=== PATIENT | male | born 1965 | race Caucasian/White ===

== ENCOUNTER 2018-03-25 10:28 | Emergency (ER) | payer BC, SELFPAY ==
[2018-03-25 10:38] VITALS: BP 155/101; PULSE 72; RESP 16; TEMP 36.6; O2SAT 98; BMI 25.0
--- NOTE | 2018-03-25 10:39 | HMH.EDGENADL ---
ED Disposition Clinical Impression: Tibial plateau fracture Qualifiers: Encounter type: initial encounter Fracture type: closed Laterality: right Qualified Code(s): S82.141A - Displaced bicondylar fracture of right tibia, initial encounter for closed fracture Disposition: Home, Self-Care Condition on Discharge: Good Instructions: How to Use Crutches, How To Perform RICE (Rest, Ice, Compress, Elevate), How to Use a Knee Immobilizer, DI for Tibial Plateau Fracture Additional Instructions: Tylenol for pain. Ice and elevation. Ranjan wrap, knee immobilizer, and crutches. No weightbearing right leg. See Dr. Painting in his office tomorrow afternoon, call tomorrow morning to schedule a time. Referrals: Alexys Painting MD [Staff Physician] - Forms: Work/School Release - Critical Care Critical Care Time: No Attestation: On 03/25/18, the high probability of a clinically significant, sudden or life threatening deterioration of the following system(s) required my full and direct attention, intervention and personal management. The time I documented below is in addition to time spent performing reported procedures but includes the following listed in this critical care notation. Medical Decision Making - Peter Inquiry Pt receiving controlled substance: No Peter was queried for this patient: Yes Reference #:: [id number] Comment: 1 rx for 20 norco 06/06/17 Vital Signs: 03/25/18 10:38 03/25/18 11:45 03/25/18 11:59 Temperature 97.9 F Temperature Source Oral Pulse Rate [Left Radial] 72 75 72 Respiratory Rate 16 Blood Pressure [Right Arm] 155/101 H 126/75 125/76 Blood Pressure Mean [Right Arm] 119 92 92 Blood Pressure Source [Right Arm] Automatic Cuff Automatic Cuff Automatic Cuff Blood Pressure Position [Right Arm] Sitting Supine Sitting 02 Sat by Pulse Oximetry 98 96 Oxygen Delivery Method Room Air Room Air Orders (Tests/Meds): ED MEDICATIONS Discontinued Medications Generic Name Dose Route Start Last Admin Trade Name Freq PRN Reason Stop Dose Admin Acetaminophen 1,000 mg 03/25/18 12:54 03/25/18 12:58 Tylenol 500mg Tablet PO 03/25/18 12:55 1,000 mg ONCE ONE Administration ORDERS Category Date Time Status Knee XR right 3 views [XR knee RT 3V] Stat Exams 03/25/18 10:50 Taken - CT Data Time Received: 12:45 Findings Narrative: IMPRESSION...... 1.. Lateral tibial plateau fracture.. Impacted minimally comminuted fracture. Depression of the fracture fragment most pronounced towards the lateral aspect the lateral tibial plateau. 2. Medial compartment with degenerative arthritic changes. Chondrocalcinosis most evident new compartment but also seen along posterior aspect of the lateral compartment 3. Notable Osteochondral defect at the lateral facet of patella. Appears old. 4. Large joint effusion Dictated By: Sina Brown Signed By: <Electronically signed by Sina Brown in [place]> 03/25/18 1233 - Physician Consults Physician Consulted: Painting Time: 12:48 Reason -: Orthopedic Eval/Care Comment/Response: He will review x-rays and call back Additional Consult: Painting Time: 13:00 Reason -: Orthopedic Eval/Care Comment/Response: Surgical and nonsurgical options are possible. He will see the patient in his office tomorrow to discuss options. Knee immobilizer, crutches, nonweightbearing, ice and elevation. Patient declines pain medication except for Tylenol. General Adult HPI - General Stated complaint: AO 03/24/18 11pm Right knee pain Time Seen by Provider: 03/25/18 10:39 - History of Present Illness HPI narrative: Twisted his right knee yesterday while skiing. [place] and heard a pop. He now has pain primarily on the medial aspect of the knee, swelling of the knee, and a feeling of instability. He took 3 Tylenol this morning and pain is controlled at this time. He has a previous left knee reconstruction done in [place]
--- NOTE | 2018-03-25 10:50 | XR_ITS ---
XR knee RT 3V Ordering Physician: [place] Sawant MD Patient Age: 53 years: Male HISTORY: ITS.REASON: injury TECHNIQUE: 3 view right knee COMPARISON :No prior FINDINGS Fracture of the lateral tibial plateau . Suggestion subtle depression at most evident towards lateral aspect of the lateral tibial plateau due to this this mildly impacted fracture.. Minor cortical step-off at lateral tibial plateau. Joint effusion suprapatella bursa. . Faint Chondrocalcinosis is seen at the medial compartment involving region medial meniscus may be some minimal chondrocalcinosis at the lateral compartment as well, although less evident. Chondrocalcinosis is likely related to degenerative changes in right knee, but can be seen other conditions such as CPPD/pseudogout Proximal fibula are intact. Bones well mineralized IMPRESSION: ...... Fracture lateral tibial plateau. . Joint effusion Incidental note the Chondrocalcinosis most evident at medial compartment..
--- NOTE | 2018-03-25 10:59 | PC.NURSE ---
Pt to rad
--- NOTE | 2018-03-25 11:16 | CT_ITS ---
CT knee RT wo con Ordering Physician: [place] Sawant MD Patient Age: 53 years: Male HISTORY: ITS.REASON: injury - lat tib plateau fx on xray . Injury. Skiing injury. TECHNIQUE: Helical CT scanning performed knee.. Axial sagittal and coronal reconstructions performed on CT workstation. All CT scans at this facility used one or more dose reduction techniques , viz: automatic exposure control, ma/Kv adjustment per patient's size, (including targeted exam where dose matched to the indication; i.e. head); or iterative reconstruction technique COMPARISON :Plain films right knee 03/25/2018 FINDINGS Fracture of the lateral tibial plateau 2 or 3 small fracture lines are seen passing through the cortical articular surface on the coronal image. There is a. There is 2.3 cm round of impaction here at the lateral aspect lateral tibial plateau weightbearing surface that is nicely seen on axial images. The sagittal images reflect the depression affecting the impacted fracture segment. This impaction/depression becomes pronounced as we follow the lateral tibial plateau coordinates lateral aspect.. ( this is nicely seen on the sagittal image 31.].- With this there also a tiny area of osseous flaring versus chondrocalcinosis along the lateral margin of the tibia & along the lateral margin of this fracture seen on coronal images. The medial compartment with mild narrowing. Mild degenerative arthritic changes medial compartment with with mild chondrocalcinosis. . Large joint effusion. . Patellofemoral relationships appear satisfactory but there is a broad old appearing osteochondral defect seen at the posterior aspect lateral facet superior patella sagittal image 32,. This defect of the lateral facet appears old on corresponding axial images.. The femoral trochanter groove appears intact. No displacement of patella. There may be some mild chondrocalcinosis is seen at the posterior aspect of the lateral compartment along the inferior margin of the posterior meniscus Mild soft tissue swelling overlying patella and patellar tendon. IMPRESSION...... 1.. Lateral tibial plateau fracture.. Impacted minimally comminuted fracture. Depression of the fracture fragment most pronounced towards the lateral aspect the lateral tibial plateau. 2. Medial compartment with degenerative arthritic changes. Chondrocalcinosis most evident new compartment but also seen along posterior aspect of the lateral compartment 3. Notable Osteochondral defect at the lateral facet of patella. Appears old. 4. Large joint effusion
--- NOTE | 2018-03-25 11:30 | PC.NURSE ---
Pt returned to rad for CT scan of extremity
--- NOTE | 2018-03-25 11:44 | PC.NURSE ---
pt returned from rad.
[2018-03-25 11:45] VITALS: BP 126/75; PULSE 75; O2SAT 96
[2018-03-25 11:59] VITALS: BP 125/76; PULSE 72
--- NOTE | 2018-03-25 11:59 | PC.NURSE ---
pt resting comfortably offers no c/o, at bedside
--- NOTE | 2018-03-25 12:44 | PC.NURSE ---
dr anthony rodriguez.
--- NOTE | 2018-03-25 12:45 | PC.NURSE ---
Dr Painting returned call
[2018-03-25 13:29] VITALS: BP 122/65; PULSE 65; RESP 16; TEMP 36.6; O2SAT 98
--- NOTE | 2018-03-25 13:31 | PC.NURSE ---
knee immobilizer to lt knee, crutches with instructions demonstrated
== END 2018-03-25 13:33 | disposition home or self-care (01) ==
PROVIDERS: Emergency Provider Emergency Medicine; PCP Family Medicine
DX: S82.141A Displaced bicondylar fracture of right tibia, initial encounter for closed fracture (principal); X50.1XXA Overexertion from prolonged static or awkward postures, initial encounter; Y93.23 Activity, snow (alpine) (downhill) skiing, snowboarding, sledding, tobogganing and snow tubing
CPT/HCPCS: 29505; 73562; 73700; 99284

== ENCOUNTER 2018-03-26 14:34 | Outpatient (RCR) | payer BC, SELFPAY | END 2018-03-26 15:00 | disposition home or self-care (01) | LOC: PT 14:34 | PROVIDERS: Visit Provider Orthopaedic Surgery | DX: S82.121A Displaced fracture of lateral condyle of right tibia, initial encounter for closed fracture (principal); S83.411A Sprain of medial collateral ligament of right knee, initial encounter | CPT/HCPCS: 97760 ==

== ENCOUNTER → 2018-04-03 13:55 | Outpatient (CLI) | payer BC, SELFPAY ==
--- NOTE | 2018-04-03 14:01 | XR_ITS ---
XR knee RT 2V HISTORY: Follow-up tibial plateau fracture ITS.REASON: right lateral tibial plateau fracture ORDERING PHYSICIAN: Alexys Painting MD PATIENT AGE: 53 years COMPARISON: 03/25/2018 FINDINGS: Minimally depressed fracture of the lateral aspect of the tibial plateau is once again noted. This does not appear significantly changed. There is a moderate size knee joint effusion with minimal osteoarthritic change of the patellofemoral joint and mild chondrocalcinosis of lateral meniscus. IMPRESSION: Overall no change of the minimally depressed lateral tibial plateau fracture with moderate size knee joint effusion
== END ==
PROVIDERS: PCP Family Medicine; Visit Provider Orthopaedic Surgery
DX: S82.143A Displaced bicondylar fracture of unspecified tibia, initial encounter for closed fracture (principal)
CPT/HCPCS: 73560

== ENCOUNTER → 2018-04-16 13:55 | Outpatient (CLI) | payer BC, SELFPAY ==
--- NOTE | 2018-04-16 13:59 | XR_ITS ---
XR knee RT 2V HISTORY: Tibial plateau fracture, fall with injury and pain ITS.REASON: ap lateral ORDERING PHYSICIAN: Alexys Painting MD PATIENT AGE: 53 years COMPARISON: 04/03/2018 FINDINGS: No change in the minimally depressed lateral tibial plateau. Previously noted fracture line is still visible. Mild chondrocalcinosis of the lateral compartment. The suprapatellar effusion appears improved IMPRESSION: No change in the minimal depressed lateral tibial plateau fracture Improving suprapatellar effusion
== END ==
PROVIDERS: PCP Family Medicine; Visit Provider Orthopaedic Surgery
DX: S82.143A Displaced bicondylar fracture of unspecified tibia, initial encounter for closed fracture (principal)
CPT/HCPCS: 73560

== ENCOUNTER → 2018-05-16 13:09 | Outpatient (CLI) | payer BC, SELFPAY ==
--- NOTE | 2018-05-16 13:14 | XR_ITS ---
XR knee RT 2V HISTORY: Follow-up tibial plateau fracture ITS.REASON: ap lateral ORDERING PHYSICIAN: Alexys Painting MD PATIENT AGE: 53 years COMPARISON: 04/16/2018 FINDINGS: Overall no significant change in the minimally depressed lateral tibial plateau fracture. Fracture line still visible along the articular surface of the lateral tibial plateau. IMPRESSION: No change minimally depressed lateral tibial plateau fracture
== END ==
PROVIDERS: PCP Family Medicine; Visit Provider Orthopaedic Surgery
DX: S82.121A Displaced fracture of lateral condyle of right tibia, initial encounter for closed fracture (principal)
CPT/HCPCS: 73560

== ENCOUNTER → 2018-06-14 13:48 | Outpatient (CLI) | payer BC, SELFPAY ==
--- NOTE | 2018-06-14 13:52 | XR_ITS ---
XR knee RT 2V HISTORY: Follow-up fracture ITS.REASON: ap lateral ORDERING PHYSICIAN: Alexys Painting MD PATIENT AGE: 53 years COMPARISON: 05/16/2018 FINDINGS: No change in the minimally depressed lateral tibial plateau fracture. A persistent longitudinal fracture line is noted extending to the proximal articular surface. There is mild chondrocalcinosis of the lateral meniscus and minimal spurring versus loose body in the interspinous region. IMPRESSION: No change minimally depressed lateral tibial plateau fracture
== END ==
PROVIDERS: PCP Family Medicine; Visit Provider Orthopaedic Surgery
DX: S82.141A Displaced bicondylar fracture of right tibia, initial encounter for closed fracture (principal); S83.411A Sprain of medial collateral ligament of right knee, initial encounter
CPT/HCPCS: 73560

== ENCOUNTER → 2018-07-05 13:18 | Outpatient (CLI) | payer BC, SELFPAY ==
--- NOTE | 2018-07-05 13:22 | XR_ITS ---
XR knee RT 2V HISTORY: Fracture follow-up, pain ITS.REASON: f/u fx ORDERING PHYSICIAN: Alexys Painting MD PATIENT AGE: 53 years COMPARISON: 06/14/2018 FINDINGS: Nondisplaced right lateral tibial plateau fracture once again noted. Fracture line still visible. There is chondrocalcinosis of the medial compartment. IMPRESSION: Overall no change of the lateral tibial plateau fracture nondisplaced
== END ==
PROVIDERS: PCP Family Medicine; Visit Provider Orthopaedic Surgery
DX: S82.144D Nondisplaced bicondylar fracture of right tibia, subsequent encounter for closed fracture with routine healing (principal)
CPT/HCPCS: 73560

== ENCOUNTER 2020-01-17 03:28 | Emergency (ER) | payer BC, SELFPAY ==
[2020-01-17 03:43] VITALS: BP 178/107; PULSE 105; RESP 18; TEMP 39.4; O2SAT 98; BMI 25.7
--- NOTE | 2020-01-17 03:57 | XR_ITS ---
PROCEDURE: XR CHEST 2V CLINICAL HISTORY: Cough w/ fever COMPARISON: CT CT ANGIO CHEST from 01/17/2020 FINDINGS: The cardiomediastinal silhouette and pulmonary vascularity are within normal limits. There are nodular opacities in the left lower lobe corresponding to the areas of infiltrate noted on the recent chest CT. 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 No acute bony abnormalities. IMPRESSION: Nodular densities in the left lower lobe corresponding to areas of infiltrate noted on the CT scan which may be slightly worse Dictated by: Francisco Singh MD 01/17/2020 17:02 Francisco Singh MD in [place] 01/17/2020 17:02
[2020-01-17 04:21] LABS: Microscopic, Urine URINE MICROSCOPIC (MICROSCOPIC)
[2020-01-17 04:25] LABS: Basophils # 0.2 K/mm3 (0-0.2); Basophils % 3.3 % (0.1-2.0); Eosinophils # 0.1 K/mm3 (0.0-0.4); Hematocrit 51.1 % (42.0-52.0); Hemoglobin 17.3 g/dL (14.1-18.0); Lymphocytes # 0.6 K/mm3 (0.7-4.5); Lymphocytes % 10.9 % (10-50); Mean Corpuscular HGB Conc 33.9 g/dL (31.8-35.4); Mean Corpuscular Hemoglobin 30.6 pg (27.0-31.2); Mean Corpuscular Volume 90.2 fl (80-94); Mean Platelet Volume 9.6 fl (7.4-10.4); Monocytes # 0.5 K/mm3 (0.1-1.0); Monocytes % 9.9 % (1.7-9.3); Neutrophils % 74.9 % (37.0-80.0); Platelet Count 190 K/mm3 (142-424); Red Blood Count 5.66 M/mm3 (4.60-6.20); White Blood Count 5.3 K/mm3 (4.8-10.8)
[2020-01-17 04:30] LABS: Appearance,Urine CLEAR (Clear); Bilirubin,Urine Negative (Negative); Blood, Urine 1+ (Negative); Color,Urine YELLOW (Yellow); Glucose,Urine (UA) Negative (Negative); Ketones,Urine Negative (Negative); Leukocyte Esterase,Urine Negative (Negative); Nitrate,Urine Negative (Negative); PH,Urine 6.5 (5.0-8.5); Protein,Urine Negative (Negative); Urobilinogen,Urine 0.2 EU/dl (0.2)
[2020-01-17 04:35] LABS: Alanine Aminotransferase 12 U/L (12-78); Albumin Level 4.5 g/dl (3.5-5.0); Albumin/Globulin Ratio 1.5 (1.1-1.8); Alkaline Phosphatase 75 U/L (38-126); Aspartate Amino Transferase 29 U/L (17-59); Bilirubin,Total 0.7 mg/dl (0.2-1.3); Blood Urea Nitrogen 13 mg/dl (9-20); Calcium 9.2 mg/dl (8.4-10.2); Carbon Dioxide 31 mmol/L (22.0-30.0); Chloride 98 mmol/L (98-107); Creatinine Clearance Estimated 111 mL/min (50-200); Estimated Glomerular Filt Rate 78 ml/min (>60); GFR (African American) 95 ML/MIN (>60); Globulin 3.1 g/dL (1.3-3.2); Glucose 90 mg/dl (74-100); Lactic Acid 1.2 mmol/L (0.7-2.1); Sodium 137 mmol/L (136-145); Total Protein,Serum 7.6 g/dl (6.3-8.2)
[2020-01-17 04:40] VITALS: BP 136/86; PULSE 97; RESP 18; O2SAT 97
[2020-01-17 04:40] LABS: C-Reactive Protein 21.7 mg/L (0-4)
[2020-01-17 04:45] VITALS: TEMP 38.7
[2020-01-17 04:54] LABS: Procalcitonin 0.063 ng/mL (0.0-2.0)
[2020-01-17 04:58] LABS: Coronavirus 19 IgG Antibody Negative (Negative); Coronavirus 19 IgM Antibody Negative (Negative); Strep Scrn Group A (Rapid) Negative (Negative)
[2020-01-17 05:00] VITALS: BP 132/84; PULSE 99; RESP 18; O2SAT 98
--- NOTE | 2020-01-17 05:13 | HMH.EDURI ---
ED Disposition Clinical Impression: Adenopathy Community acquired pneumonia Qualifiers: Laterality: left Lung location: lower lobe of lung Qualified Code(s): J18.9 - Pneumonia, unspecified organism Disposition: Home, Self-Care Condition on Discharge: Good Instructions: DI for Fever (Symptom) -- Adult Additional Instructions: use meds and call pcp for follow up Prescriptions: levoFLOXacin [Levaquin 500mg tab] 500 mg PO DAILY #7 tab Transmission Status: Pending to [id number] Referrals: Joshua Balbuena MD [Primary Care Provider] - - Critical Care Critical Care Time: No Attestation: On 01/17/20, the high probability of a clinically significant, sudden or life threatening deterioration of the following system(s) required my full and direct attention, intervention and personal management. The time I documented below is in addition to time spent performing reported procedures but includes the following listed in this critical care notation. Medical Decision Making - Medical Records Medical records reviewed: Yes: I reviewed the patient's medical records. - Peter Inquiry Pt receiving controlled substance: No Vital Signs: 01/17/20 03:43 01/17/20 04:40 01/17/20 04:45 Temperature 102.9 F H 101.6 F H Temperature Source Oral Oral Pulse Rate [Right] 105 H 97 H Respiratory Rate 18 18 Blood Pressure [Right Arm] 178/107 H 136/86 Blood Pressure Mean [Right Arm] 130 102 Blood Pressure Source [Right Arm] Automatic Cuff Blood Pressure Position [Right Arm] Sitting 02 Sat by Pulse Oximetry 98 97 Oxygen Delivery Method Room Air Room Air - Lab Data Lab results reviewed: Yes: I reviewed the patient's lab results. Lab Results 01/17/20 04:00: WBC 5.3, RBC 5.66, Hgb 17.3, Hct 51.1, MCV 90.2, MCH 30.6, MCHC 33.9, RDW 13.0, Plt Count 190, MPV 9.6, Neut % (Auto) 74.9, Lymph % (Auto) 10.9, Thayer % (Auto) 9.9 H, Eos % (Auto) 1.0, Baso % (Auto) 3.3 H, Neut # (Auto) 4.0, Lymph # (Auto) 0.6 L, Thayer # (Auto) 0.5, Eos # (Auto) 0.1, Baso # (Auto) 0.2, ESR 2 01/17/20 04:00: Sodium 137, Potassium 4.0, Chloride 98, Carbon Dioxide 31 H, Anion Gap 12.0, BUN 13, Creatinine 1.00, Estimated Creat Clear 111, Estimated GFR 78, Est GFR ( Amer) 95, Glucose 90, Calcium 9.2, Total Bilirubin 0.7, AST 29, ALT 12, Alkaline Phosphatase 75, C-Reactive Protein 21.7 H, Total Protein 7.6, Albumin 4.5, Globulin 3.1, Albumin/Globulin Ratio 1.5, Procalcitonin 0.063 01/17/20 04:00: Lactate 1.2 01/17/20 04:00: Influenza Type A Ag Negative, Influenza Type B Ag Negative, SARS-CoV-2 IgG Ab (Rapid) Negative, SARS-CoV-2 IgM Ab (Rapid) Negative 01/17/20 04:00: Group A Strep Rapid Negative 01/17/20 04:00: Urine Color Yellow, Urine Appearance Clear, Urine pH 6.5, Ur Specific [place] 1.010, Urine Protein Negative, Urine Glucose (UA) Negative, Urine Ketones Negative, Urine Blood 1+, Urine Nitrate Negative, Urine Bilirubin Negative, Urine Urobilinogen 0.2, Ur Leukocyte Esterase Negative, Urine RBC 5-10, Urine WBC 3-5 Result diagrams: 01/17/20 04:00 01/17/20 04:00 Orders (Tests/Meds): ED MEDICATIONS Generic Name Dose Route Start Last Admin Trade Name Freq PRN Reason Stop Dose Admin Sodium Chloride 1,000 mls @ 999 mls/hr 01/17/20 04:00 01/17/20 04:01 Sod Chlor 0.9% 1000ml Bag IV 01/17/20 05:00 999 mls/hr .Q1H1M MYCHAL Administration Sodium Chloride 1,000 mls @ 999 mls/hr 01/17/20 04:45 01/17/20 04:42 Sod Chlor 0.9% 1000ml Bag IV 01/17/20 05:45 999 mls/hr .Q1H1M MYCHAL Administration Discontinued Medications Generic Name Dose Route Start Last Admin Trade Name Freq PRN Reason Stop Dose Admin Acetaminophen 1,000 mg 01/17/20 03:57 01/17/20 04:02 Acetaminophen 500mg Tab PO 01/17/20 03:58 1,000 mg ONCE ONE Administration Dexamethasone Sodium Phosphate 10 mg 01/17/20 03:57 01/17/20 04:01 Dexamethasone 4mg/Ml 5ml Mdv IV 01/17/20 03:58 10 mg ONCE ONE Administration Ibuprofen 800 mg 01/17/20 03
--- NOTE | 2020-01-17 05:18 | CT_ITS ---
PROCEDURE: CT ANGIO CHEST CLINCIAL INDICATION: SOA Fever, chills, cough, loss taste COMPARISON: No exams were available for comparison TECHNIQUE: IV Contrast: 70ML Isovue 370 Axial images obtained with sagittal and coronal reformats. All CT scans at the facility use one or more dose reduction, viz: automated exposure control, ma/kV adjustment per patient size (including targeted exams where dose is matched to indication, i.e. head), or iterative reconstruction technique. FINDINGS: HEART AND MEDIASTINAL STRUCTURES: Thyroid gland is somewhat prominent on both sides right more than left. There is scattered small mediastinal and supraclavicular lymph nodes. The largest cluster of nodes is in the distal left paratracheal region measuring 2.7 by 2.7 cm. LUNGS AND PLEURAL SPACES: There is mild biapical nodularity. There is consolidation within the left lower lobe posteriorly consistent with pneumonia. No effusions. BONY STRUCTURES: No acute bony abnormalities apparent. UPPER ABDOMEN: Unremarkable. ADDITIONAL FINDINGS: No other significant abnormalities. IMPRESSION: Left lower lobe pneumonia with mild mediastinal and supraclavicular and axillary adenopathy. Prominent thyroid gland Dictated by: Francisco Singh MD 01/17/2020 06:00 Francisco Singh MD in [place] 01/17/2020 06:00
[2020-01-17 05:28] LABS: Erythrocyte Sedimentation Rate 2 mm/hr (0-20)
[2020-01-17 06:00] VITALS: BP 135/82; PULSE 95; RESP 18; O2SAT 95
[2020-01-17 07:04] VITALS: BP 140/92; PULSE 88; RESP 18; TEMP 37.4; O2SAT 95
[2020-01-18 14:12] LABS: Covid-19 Nasal PCR Sendout Lex POSITIVE
--- NOTE | 2020-01-18 14:19 | PC.NURSE ---
attempted to call results to pt but the number in the chart is disconnected.
== END 2020-01-17 07:11 | disposition home or self-care (01) ==
PROVIDERS: Emergency Provider Emergency Medicine; PCP Family Medicine
DX: U07.1 COVID-19 (principal); J18.9 Pneumonia, unspecified organism; Z87.442 Personal history of urinary calculi; E03.9 Hypothyroidism, unspecified; Z79.899 Other long term (current) drug therapy
CPT/HCPCS: 71046; 71275; 80053; 81001; 83605; 84145; 85025; 85651; 86140; 86328; 87040; 87275; 87276; 87430; 96366; 96375; 99284; Q9967; U0004

== ENCOUNTER → 2020-11-27 12:36 | Outpatient (CLI) | payer BC, SELFPAY ==
--- NOTE | 2020-11-27 12:56 | ECG_ITS ---
APPROVED REPORT Exam: Resting ECG HR:96 bpm ECG Measurements Heart Rate 96 AXES QRSd 86 QRS 74 QT 330 T -21 QTc 416 Conclusion Atrial fibrillation Minimal voltage criteria for LVH, may be normal variant T wave abnormality, consider inferior ischemia or digitalis effect Abnormal ECG Electronically signed by : Osmel Lara MD 11/28/2020 09:12:53
== END ==
PROVIDERS: PCP Family Medicine; Visit Provider Family Medicine
DX: I49.9 Cardiac arrhythmia, unspecified (principal)
CPT/HCPCS: 93005

== ENCOUNTER → 2020-12-07 10:19 | Outpatient (CLI) | payer BC, SELFPAY | PROVIDERS: PCP Family Medicine; Visit Provider Physician Assistant | DX: R07.9 Chest pain, unspecified (principal); I48.91 Unspecified atrial fibrillation; E07.9 Disorder of thyroid, unspecified; I10 Essential (primary) hypertension; R06.83 Snoring; R40.0 Somnolence | CPT/HCPCS: 93270 ==

== ENCOUNTER → 2020-12-22 06:07 | Outpatient (CLI) | payer BC, SELFPAY ==
--- NOTE | 2020-12-22 06:17 | NM_ITS ---
APPROVED REPORT Exam: Nuclear Stress Test Indication: Palpitations, Afib, HTN, Family history Patient Location: Outpatient Stress Tech: Sandhya Clements [place] Tech:Sofia Avendano, ARRT, RT (R)(N) Ht: 6 ft 2 in Wt: 200 lbs HR: 87 bpm BP: 149/101 mmHg BSA: 2.17 m2 BMI: 25.6 History: Palpitations, Afib, HTN, Family history Procedure: Patient exercised on Primitivo protocol 9:49 minutes and sec, resting heart rate 87 bpm, resting blood pressure 149/101 mmHg, with exercise maximum heart rate achived was 180 bpm which is 108 % of the maximum predicted heart rate and blood pressure was 204/108 mmHg. Test was stopped due to leg fatigue and SOA. Patient denied any complaint of chest pain. Patient has good exercise capacity, achieved 10.1 METs of workload on treadmill, the blood pressure response to exercise was Hypertensive. Electrocardiogram Resting electrocardiogram shows sinus rhythm, with exercise there is additional [address] segment depression noted from the baseline EKG. The EKG portion of the exercise Myoview is nondiagnostic due to baseline abnormal EKG. Cardiac Stress and Resting SPECT Images: Cardiac Stress and Resting SPECT images were obtained using technetium 99m Myoview 29.1 mCi stress and 10.77 mCi at rest. Gated SPECT for analysis of segmental wall motion and calculation of the ejection fraction also done. Cardiac stress and resting SPECT images show uniform myocardial activity without segmental perfusion abnormality, compared right ejection fraction is 36% with no regional wall motion abnormality, right ventricle is normal size and contractility, however during the study patient was in atrial fibrillation with variable response, that may underestimate the ejection fraction by gated SPECT. Conclusion: 1. The EKG portion of the exercise Myoview is nondiagnostic due to baseline abnormal EKG, patient has good exercise capacity achieved 10.1 METs of workload on treadmill, the blood pressure response to exercise was hypertensive, test was stopped due to shortness of breath patient did not complain chest pain. 2. No scintigraphic evidence of reversible ischemia seen, compared right ejection fraction is 36% with no regional wall motion abnormality, however during the study patient was in atrial fibrillation with variable ventricular response that may underestimate the ejection fraction by gated SPECT. An echocardiogram will be better modality to evaluate left ventricular systolic function in this patient. Electronically signed by : Gage Rivera MD 12/22/2020 18:25:58
--- NOTE | 2020-12-22 06:17 | US_ITS ---
PROCEDURE: US THYROID CLINICAL INDICATION: new onset afib/known thyroid disease COMPARISON: CT CT ANGIO CHEST from 01/17/2020 FINDINGS: Right lobe: 5.7 x 2.4 x 2.7 cm. Diffuse heterogeneous echogenicity without discrete nodule. Left lobe: 5.8 x 2 x 2.4 cm. No discrete nodule apparent. Isthmus: Unremarkable Additional findings: IMPRESSION: Enlarged heterogeneous thyroid gland consistent with goiter without discrete nodule. Dictated by: Francisco Singh MD 12/23/2020 08:56 Francisco Singh MD in [place] 12/23/2020 08:56
--- NOTE | 2020-12-22 08:18 | CA_ITS ---
APPROVED REPORT EXAM: Comprehensive 2D, Doppler, and color-flow Echocardiogram Lens Edge Grinder Machine: Ursula Diego CRT Ht: 6 ft 2 in Wt: 199lbs BSA: 2.17 BP: 137/97 mmHg Indications: Chest Pain, Atrial Fibrillation 2D Dimensions LVOT 1.93 cm (M/F) 1.5-2.5 LA Volume 33.00 mL LA Volume Index 15.20 mL/m2 (M/F) 16-34 M-Mode Dimensions RVDd 3.40 cm (0.9-2.6) LA Diam 3.38 cm (1.9-4.0) LVDd 4.29 cm (3.5-5.7) Ao Diam 4.11 cm (2.0-3.7) LVDs 3.33 cm (3.5-5.7) IVSd 1.00 cm (0.6-1.1) PWd 0.75 cm (0.6-1.1) EF (Teich) 45.40% FS 22.40% EDV (Teich) 82.60 mL TAPSE 1.54 (<1.7) ESV (Teich) 45.10 mL LV Diastology E Decel Time 130.00 (160-240 msec) E/A Ratio 1.40 Aortic Valve AO Peak GR. 7.00 mmHg Mitral Valve MV E Max Dawson. 76.00 (40-130 cm/s) MV A Velocity 54.00 (40-130 cm/s) E/A Ratio 1.40 MV Decel. Time 130.00 (160-240 ms) MV PHT 38.00 ms Pulmonary Valve PV Peak Velocity 141.00 (50-150 cm/s) Tricuspid Valve TR P. Velocity 251.00 cm/s RAP Estimate 10.00 mmHg RVSP 35.20 mmHg Left Ventricle Left atrium is mildly enlarged, left ventricle is normal size, mild concentric left ventricular hypertrophy, visually estimated ejection fraction 50% with no regional wall motion abnormality, endocardial cells are poorly visualized, diastolic parameters are inconclusive. Right Ventricle Right atrium and right ventricle are mildly enlarged with normal contractility. Aortic Valve Aortic valve is minimally thickened and fibrosed, there is no aortic stenosis or aortic insufficiency. Mitral Valve Mitral valve grossly normal, there is trace mitral regurgitation. Tricuspid Valve Tricuspid grossly normal, there is trace tricuspid regurgitation, tricuspid regurgitation jet velocity is inadequate for calculation of the right ventricular systolic pressure. Pulmonic Valve Pulmonic valve is poorly visualized. Great Vessels Aortic root is normal size. Inferior vena cava is normal size with normal inspiratory collapse. Pericardium No significant pericardial effusion noted. Conclusion 1. Mild biatrial enlargement, normal left ventricular size, mild concentric left ventricular hypertrophy, visually estimated ejection fraction 50% with no regional wall motion abnormality, diastolic parameters are inconclusive. 2. Mildly enlarged right ventricle with normal contractility. 3. Trace mitral and tricuspid regurgitation. 4. No significant pericardial effusion noted. Electronically signed by : Gage Rivera MD 12/22/2020 19:10:35
--- NOTE | 2020-12-22 08:31 | HMH.ITSHM ---
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 []RIVAROXABAN LEVOTHYROXINE DILTIAZEM
--- NOTE | 2020-12-22 09:42 | CA_ITS ---
APPROVED REPORT Exam: Exercise Treadmill Technologist: Sandhya Clements, Ht: 6 ft 2 in Wt: 199 lbs BSA: 2.17 m2 HR: 87 bpm BP: 149/101 mmHg Indications: Afib Medical History Medications: Levothyroxine,,,,, DilTAiazem,,,,, Stress Test Details Test: Primitivo HR Resting HR: 103 bpm Max Heart Rate (APMHR): 167.604754 bpm Max HR Achieved: 184 bpm Target HR (85% APMHR): 141.520309 bpm % of APMHR: 110.18 Recovery HR: 93 bpm BP Resting BP: 149/110 mmHg Max BP: 204/108 mmHg Recovery BP: 114.0/80.0 mmHg ECG Resting ECG: Afib, controlled rate, Twave abns inferiorly, ST-T abns laterally Clinical Exercise duration: 09:49 min Highest Stage Achieved: Exercise capacity: 10.1 METs Stress ECG Conclusion Exercised 9:49 on Primitivo Protocol. Metoprolol 2.5mg IV given to slow HR. Max HR: 180 %of PM: 108% Max BP: 204/108 METs: 10.1 Test stopped due to: SOA, Leg fatigue Symptoms: No CP. Arrhythmias/Ectopy: Afib with periods of atrial flutter. ST-T Changes: Exaggeration of baseline abns. Conclusion: Non-diagnostic EXT. Myoview images reported separately. Test Summary Stage 3 03:00 14.0 3.4 156 . 204/108 . . REST . . . . . . . Standing REST 04:16 0.0 0.0 103 . 149/110 . . Stage 1 01:00 10.0 1.7 109 . . . . Stage 1 02:00 10.0 1.7 111 . . . . Stage 1 03:00 10.0 1.7 117 . 150/110 . . Stage 2 01:00 12.0 2.5 137 . . . . Stage 2 02:00 12.0 2.5 134 . . . . Stage 2 03:00 12.0 2.5 155 . 180/108 . . Stage 3 01:00 14.0 3.4 155 . . . . Stage 3 02:00 14.0 3.4 157 . . . . Stage 3 03:00 14.0 3.4 156 . 204/108 . . Stage 4 00:49 16.0 4.2 173 . . . Stop exercise at 09:49 RECOVERY 01:00 0.0 0.0 165 . . . . RECOVERY 02:00 0.0 0.0 167 . 182/ 98 . . RECOVERY 03:00 0.0 0.0 168 . 182/ 98 . . RECOVERY 04:00 0.0 0.0 168 . 155/107 . . RECOVERY 05:00 0.0 0.0 164 . 155/107 . . RECOVERY 06:00 0.0 0.0 168 . 154/ 97 . . RECOVERY 07:00 0.0 0.0 164 . 154/ 97 . . RECOVERY 08:00 0.0 0.0 164 . 154/ 97 . . RECOVERY 09:00 0.0 0.0 160 . 154/ 97 . . RECOVERY 10:00 0.0 0.0 93 . 154/ 97 . . RECOVERY 11:00 0.0 0.0 91 . 154/ 97 . . RECOVERY 12:00 0.0 0.0 90 . 113/ 83 . . RECOVERY 13:00 0.0 0.0 79 . 113/ 83 . . RECOVERY 14:00 0.0 0.0 86 . 113/ 83 . . RECOVERY 14:53 0.0 0.0 88 . 114/ 80 . . Electronically signed by : Gage Rivera MD 12/22/2020 18:11:11
== END ==
PROVIDERS: PCP Family Medicine; Visit Provider Physician Assistant
DX: I48.91 Unspecified atrial fibrillation (principal); R07.9 Chest pain, unspecified; E07.9 Disorder of thyroid, unspecified; I10 Essential (primary) hypertension
CPT/HCPCS: 76536; 78452; 93017; 93306; A9502

== ENCOUNTER → 2021-01-14 15:32 | Outpatient (CLI) | payer BC, SELFPAY | PROVIDERS: PCP Family Medicine; Visit Provider Physician Assistant | DX: G47.33 Obstructive sleep apnea (adult) (pediatric) (principal); R07.9 Chest pain, unspecified; R06.83 Snoring; R40.0 Somnolence | CPT/HCPCS: G0399 ==

== ENCOUNTER → 2021-02-01 12:59 | Outpatient (CLI) | payer BC, SELFPAY ==
--- NOTE | 2021-02-01 13:18 | ECG_ITS ---
APPROVED REPORT Exam: Resting ECG HR:99 bpm ECG Measurements Heart Rate 99 AXES QRSd 94 QRS 48 QT 346 T -87 QTc 444 Conclusion Atrial fibrillation Nonspecific ST and T wav changes Abnormal ECG Electronically signed by : Osmel Lara MD 02/03/2021 13:27:04
== END ==
PROVIDERS: PCP Family Medicine; Visit Provider Internal Medicine Cardiovascular Disease
DX: I48.0 Paroxysmal atrial fibrillation (principal)
CPT/HCPCS: 93005

== ENCOUNTER 2021-02-12 22:04 | Emergency (ER) | payer BC, SELFPAY ==
[2021-02-12 22:06] VITALS: BP 143/89; PULSE 78; RESP 18; TEMP 37.8; O2SAT 96; BMI 25.0
--- NOTE | 2021-02-12 22:34 | XR_ITS ---
PROCEDURE INFORMATION: Exam: XR Chest Exam date and time: 02/12/2021 10:34 PM Age: 55 years old Clinical indication: Cough TECHNIQUE: Imaging protocol: XR of the chest. Views: 2 views. COMPARISON: CR XR CHEST 2V 01/17/2020 3:53 AM FINDINGS: Lungs: Mild biapical scarring. Lungs appear mildly hyperinflated with diffuse interstitial coarsening, suggesting COPD. Interval resolution of previously demonstrated airspace disease in the left mid to lower lung since prior study of 01/17/2020. No consolidation currently. No pulmonary edema. Pleural spaces: No pleural effusion. No pneumothorax. Heart/Mediastinum: Normal heart size. Bones/joints: Scattered mild degenerative changes. IMPRESSION: No acute finding.
[2021-02-12 22:38] LABS: Coronavirus 19, PCR Not Detected (NotDetected); Influenza A, PCR Not Detected (NotDetected); Influenza B, PCR Not Detected (NotDetected)
[2021-02-12 22:41] LABS: Basophils # 0.2 K/mm3 (0-0.2); Basophils % 1.4 % (0.1-2.0); Eosinophils # 0.2 K/mm3 (0.0-0.4); Eosinophils % 1.8 % (0.1-12.0); Hematocrit 54.8 % (42.0-52.0); Hemoglobin 17.3 g/dL (14.1-18.0); Lymphocytes # 2.2 K/mm3 (0.7-4.5); Lymphocytes % 18.5 % (10-50); Mean Corpuscular HGB Conc 31.5 g/dL (31.8-35.4); Mean Corpuscular Hemoglobin 29.4 pg (27.0-31.2); Mean Corpuscular Volume 93.3 fl (80-94); Mean Platelet Volume 9.9 fl (7.4-10.4); Monocytes % 8.8 % (1.7-9.3); Neutrophils # 8.2 K/mm3 (1.8-7.8); Neutrophils % 69.5 % (37.0-80.0); Platelet Count 270 K/mm3 (142-424); Red Blood Count 5.87 M/mm3 (4.60-6.20); Red Cell Distribution Width 13.1 % (11.5-17.5); White Blood Count 11.8 K/mm3 (4.8-10.8)
[2021-02-12 22:46] LABS: Alanine Aminotransferase 20 U/L (12-78); Albumin Level 4.5 g/dl (3.5-5.0); Albumin/Globulin Ratio 1.3 (1.1-1.8); Alkaline Phosphatase 78 U/L (38-126); Anion Gap 12.6 mEq/L (5-15); Aspartate Amino Transferase 33 U/L (17-59); Blood Urea Nitrogen 11 mg/dl (9-20); Calcium 9.3 mg/dl (8.4-10.2); Carbon Dioxide 29 mmol/L (22.0-30.0); Chloride 100 mmol/L (98-107); Creatinine Clearance Estimated 107 mL/min (50-200); Estimated Glomerular Filt Rate 78 ml/min (>60); GFR (African American) 95 ML/MIN (>60); Globulin 3.4 g/dL (1.3-3.2); Glucose 105 mg/dl (74-100); Potassium 3.6 mmoL/L (3.5-5.1); Sodium 138 mmol/L (136-145); Total Protein,Serum 7.9 g/dl (6.3-8.2)
[2021-02-12 22:56] LABS: Strep Scrn Group A (Rapid) Negative (Negative)
[2021-02-12 23:05] LABS: T4 (Thyroxine) 9.6 ug/dl (5.53-11.0)
[2021-02-12 23:06] LABS: Procalcitonin 0.081 ng/mL (0.0-2.0)
[2021-02-12 23:07] LABS: Erythrocyte Sedimentation Rate 4 mm/hr (0-20)
[2021-02-12 23:19] LABS: Thyroid Stimulating Hormone 1.13 uIU/mL (0.465-4.68)
--- NOTE | 2021-02-12 23:48 | HMH.EDURI ---
ED Disposition Clinical Impression: Pharyngitis Qualifiers: Pharyngitis/tonsillitis etiology: unspecified etiology Qualified Code(s): J02.9 - Acute pharyngitis, unspecified Disposition: Home, Self-Care Condition on Discharge: Good Instructions: DI for Fever (Symptom) -- Adult Additional Instructions: fluids and use meds as directed Prescriptions: Azithromycin [Zithromax 250mg tab] 250 mg PO DIRECTED #6 tab Transmission Status: Pending to [facility] [address] [place] [address] Rx Referrals: Joshua Balbuena MD [Primary Care Provider] - - Critical Care Critical Care Time: No Attestation: On 02/12/21, the high probability of a clinically significant, sudden or life threatening deterioration of the following system(s) required my full and direct attention, intervention and personal management. The time I documented below is in addition to time spent performing reported procedures but includes the following listed in this critical care notation. Medical Decision Making - Medical Records Medical records reviewed: Yes: I reviewed the patient's medical records. - Peter Inquiry Pt receiving controlled substance: No Vital Signs: 02/12/21 22:06 Temperature 100.1 F H Temperature Source Oral Pulse Rate [Apical] 78 Respiratory Rate 18 Blood Pressure [Right Arm] 143/89 H Blood Pressure Mean [Right Arm] 107 Blood Pressure Source [Right Arm] Automatic Cuff Blood Pressure Position [Right Arm] Sitting 02 Sat by Pulse Oximetry 96 Oxygen Delivery Method Room Air - Lab Data Lab results reviewed: Yes: I reviewed the patient's lab results. Lab Results 02/12/21 22:20: WBC 11.8 H, RBC 5.87, Hgb 17.3, Hct 54.8 H, MCV 93.3, MCH 29.4, MCHC 31.5 L, RDW 13.1, Plt Count 270, MPV 9.9, Neut % (Auto) 69.5, Lymph % (Auto) 18.5, Bladen % (Auto) 8.8, Eos % (Auto) 1.8, Baso % (Auto) 1.4, Neut # (Auto) 8.2 H, Lymph # (Auto) 2.2, Bladen # (Auto) 1.0, Eos # (Auto) 0.2, Baso # (Auto) 0.2 02/12/21 22:20: Sodium 138, Potassium 3.6, Chloride 100, Carbon Dioxide 29, Anion Gap 12.6, BUN 11, Creatinine 1.00, Estimated Creat Clear 107, Estimated GFR 78, Est GFR ( Amer) 95, Glucose 105 H, Calcium 9.3, Total Bilirubin 1.0, AST 33, ALT 20, Alkaline Phosphatase 78, C-Reactive Protein 67.0 H, Total Protein 7.9, Albumin 4.5, Globulin 3.4 H, Albumin/Globulin Ratio 1.3, TSH 1.13, Thyroxine (T4) 9.6 02/12/21 22:20: SARS-CoV-2 (PCR) Not detected, Influenza A Untype (PCR) Not detected, Influenza Type B (PCR) Not detected 02/12/21 22:20: ESR 4 02/12/21 22:20: Procalcitonin 0.081 02/12/21 22:30: Group A Strep Rapid Negative Result diagrams: 02/12/21 22:20 02/12/21 22:20 Orders (Tests/Meds): ED MEDICATIONS Generic Name Dose Route Start Last Admin Trade Name Freq PRN Reason Stop Dose Admin Lactated Ringer's 1,000 mls @ 999 mls/hr 02/12/21 22:30 02/12/21 22:35 Lactated Ringer's 1000 Ml Bag IV 02/12/21 23:30 999 mls/hr .Q1H1M MYCHAL Administration Discontinued Medications Generic Name Dose Route Start Last Admin Trade Name Freq PRN Reason Stop Dose Admin Acetaminophen 1,000 mg 02/12/21 22:29 02/12/21 22:36 Acetaminophen 500mg Tab PO 02/12/21 22:30 1,000 mg ONCE ONE Administration Ibuprofen 600 mg 02/12/21 22:29 02/12/21 22:35 Ibuprofen 600 Mg Tablet PO 02/12/21 22:30 600 mg ONCE ONE Administration ORDERS Category Date Time Status Strep Screen Confirmation Stat Micro 02/12/21 22:30 Received - Radiology Data #1 Image(s): Chest Image Reviewed: Yes I have reviewed radiologist's interpretation Preliminary Findings: Normal/NAD Medical Decision Narrative: pt with uri sx cough and sore throat with no rash with stable exam and labs URI/Sore Throat HPI - General Chief Complaint: Fever Stated Complaint: sore throat,cough,runny nose Time Seen by Provider: 02/12/21 23:00 Mode of Arrival: Ambulatory Source of Information: Patient, Medical Record Limitations: No Limitations Description of
[2021-02-13 00:05] VITALS: BP 119/82; PULSE 73; RESP 20; TEMP 37.1; O2SAT 99
== END 2021-02-13 00:13 | disposition home or self-care (01) ==
PROVIDERS: Emergency Provider Emergency Medicine; PCP Family Medicine
DX: J02.9 Acute pharyngitis, unspecified (principal); Z20.822 Contact with and (suspected) exposure to COVID-19
CPT/HCPCS: 71046; 80053; 84145; 84436; 84443; 85025; 85651; 86140; 87430; 96365; 99283; C9803; U0003; U0005

== ENCOUNTER → 2021-03-03 11:12 | Outpatient (CLI) | payer BC, SELFPAY | PROVIDERS: PCP Family Medicine; Visit Provider Obstetrics & Gynecology Gynecology | DX: Z01.812 Encounter for preprocedural laboratory examination (principal); Z11.52 Encounter for screening for COVID-19 | CPT/HCPCS: C9803; U0003; U0005 ==

== ENCOUNTER → 2021-03-17 12:40 | Outpatient (CLI) | payer BC, SELFPAY | PROVIDERS: PCP Family Medicine; Visit Provider Obstetrics & Gynecology Gynecology | DX: Z01.812 Encounter for preprocedural laboratory examination (principal); Z11.52 Encounter for screening for COVID-19 | CPT/HCPCS: C9803; U0003; U0005 ==

== ENCOUNTER 2022-12-26 10:01 | Emergency (ER) | payer BC, SELFPAY ==
--- NOTE | 2022-12-26 10:06 | XR_ITS ---
FINAL REPORT CLINICAL HISTORY: posterior PAIN no known trauma COMPARISON: None FINDINGS: LEFT WRIST Three views demonstrate no acute fracture or dislocation. The visualized joint spaces are normally aligned. There is a soft tissue calcification noted in the medial wrist, of uncertain etiology. IMPRESSION: Soft tissue calcification in the medial wrist, uncertain etiology. Reviewed, Interpreted and Dictated by Preet Mitchell III, MD Transcribed by Sara Potts Authenticated and [facility]
[2022-12-26 10:25] VITALS: BP 140/90; PULSE 63; RESP 18; TEMP 36.9; O2SAT 98; BMI 25.9
--- NOTE | 2022-12-26 10:56 | EXP.UTC ---
Discharge Plan Disposition Patient Disposition: Home, Self-Care Condition: Good Prescriptions Prescriptions: No Action levothyroxine 125 mcg tablet 150 mcg PO DAILY magnesium oxide 400 mg (241.3 mg magnesium) tablet 400 mg PO DAILY Patient Comments: TAKE 1 TABLET BY MOUTH ONCE DAILY losartan 100 mg tablet 100 mg PO DAILY Patient Comments: TAKE 1 TABLET BY MOUTH ONCE DAILY Referrals Follow up/Referrals: Joshua Balbuena MD [Primary Care Provider] - See instructions Junito Mead DO [Staff Physician] - See instructions (Call office for appointment) Activity Restrictions/Add. Instructions Additional Instructions/Restrictions: *RICE, Rest the extremity, Ice 15-20 minutes 3-4 times daily, Compress- wear the daphne wrap as discussed as much as possible to help reduce swelling and pain, Elevate the extremity when at rest *Velcro Wrist splint is for support and help control swelling, use it except in the shower. Be sure that is not to tight but not to loose either that you have at home *Elevate when resting? *Ibuprofen 600-800mg every 6-8 hours as needed for pain an inflammation. If need something more can take Tylenol in between doses of Ibuprofen to help Immediately follow up with your family doctor for new or worsening of symptoms, or no noticeable improvement over the next 3-5 days Follow up with Orthopedics if pain continues Clinical Impressions Clinical Impression: Pain in wrist Qualifiers: Laterality: left Qualified Code(s): M25.532 - Pain in left wrist Instructions Patient Instructions: How To Perform RICE (Rest, Ice, Compress, Elevate), DI for Wrist Pain Discharge ED Provider: Amaya Cheung [facility] General Stated complaint: fell on L wrist 12/16/22 Mode of Arrival: Ambulatory Source of Information: Patient Limitations: No Limitations Time Seen by Provider: 12/26/22 10:56 Description of Symptoms (Recalled from Triage Doc. by RN): PATIENT C/O PAIN TO LEFT WRIST. HE STATES HE FELL BACKWARD ON 12/16 AND WAS TRYING TO CATCH HIMSELF AND INJURED HIS WRIST. 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 and it keeps aggravating it so he came in to get it xrayed to make sure that nothing is broken Related Data Home Medications Medication Instructions Recorded Confirmed levothyroxine 125 mcg tablet 150 mcg PO DAILY thyroid 12/07/20 12/26/22 losartan 100 mg tablet 100 mg PO DAILY 12/26/22 12/26/22 magnesium oxide 400 mg (241.3 mg 400 mg PO DAILY 12/26/22 12/26/22 magnesium) tablet Allergies Allergy/AdvReac Type Severity Reaction Status Date / Time No Known Allergies Allergy Verified 12/07/20 09:27 Worker's Comp Is this a Worker's Comp case?: No [facility] Disclaimer: The information contained in this section may have been updated after the patient was seen, as this information can be updated by other users. Medical History (Updated 12/26/22 @ 11:29 by Amaya Cheung APRN) Hypertension Hypothyroid Social History Smoking Status: Never smoker alcohol intake: never current occupational status: employed Travel in the last 8 weeks: Inside the [place] household members: spouse housing: house caffeine: No ROS Obtained: Yes All systems reviewed & no additional complaints except as documented and Yes Systems reviewed as appropriate & no additional complaints except as documented Constitutional Constitutional: Reports system reviewed and no additional complaints, except as docume
[2022-12-26 11:23] VITALS: BP 140/90; PULSE 63; RESP 18; TEMP 36.9; O2SAT 98
== END 2022-12-26 11:33 | disposition home or self-care (01) ==
PROVIDERS: Emergency Provider Nurse Practitioner; PCP Family Medicine
DX: M25.532 Pain in left wrist (principal); I10 Essential (primary) hypertension; E03.9 Hypothyroidism, unspecified; W01.10XA Fall on same level from slipping, tripping and stumbling with subsequent striking against unspecified object, initial encounter
CPT/HCPCS: 73110; 99204; 99212; G0463

== ENCOUNTER 2023-08-22 07:27 | Day surgery (SDC) | payer BC, SELFPAY ==
[2023-08-18 13:12] VITALS: BMI 25.0
[2023-08-22] VITALS (7 sets, daily range): BP systolic 99–134; BP diastolic 58–102; PULSE 57–69; RESP 16–18; TEMP 36.3–36.4; O2SAT 94–98
[2023-08-22] MEDS: LACTATED RINGERS 1000ML 1,000 ML 25 ML IV (07:46)
--- NOTE | 2023-08-22 08:03 | P.PNANES_ITS ---
[facility] Disclaimer: The information contained in this section may have been updated after the patient was seen, as this information can be updated by other users. Medical History Hypothyroid Hypertension Surgical History (Updated 08/22/23 @ 07:48 by Antony Stroud RN) History of cardiac radiofrequency ablation History of surgery on lower extremity History of knee surgery History of appendectomy History of tonsillectomy Family History Other No significant family history Social History Smoking Status: Never smoker alcohol intake: never substance use type: denies use current occupational status: employed Travel in the last 8 weeks: None household members: spouse housing: house caffeine: No [facility] Anesthesia Checklist Patient Identification Patient Identification: Arm Band and Verbal (Name & ) Structural Data Admitted From: Home Planned Operative Procedure/s: Colonoscopy Consent for Planned Operative Procedure(s) Verified: Yes Verified Documents: Surgical Consent and History and Physical NPO Status Verified Time NPO: 06:00 Chart Verification Results Verified: CBC, BMP, ECG and Chest Xray Additional verifications Patient : No Anesthesia Reactions: No Hx Blood Transfusions: No Blood Transfusion Reaction: No Cardiovascular Assessment Heart Sounds: S1 & S2 Pulse Rhythm: Irregular Peripheral Edema: No Airway Assessment Mallampati Score:: Class II C-Spine Mobility Assessed: Yes (FROM) TMJ Mobility Assessed: Yes Dentition: Good Dentition (Nothing loose per pt.) Neurological Assessment Level of Consciousness: Awake, Alert, Appropriate and Follows Commands Hx Seizures: No Numbness or tingling in extremities: No Anesthesia Plan Anesthesia Risk discussed: Yes Anesthesia Plan: Verified ASA Class: II Anesthesia Type: MAC
--- NOTE | 2023-08-22 08:39 | HMH.SCOPE ---
Procedure: Date: 08/22/23 Patient Date of :: 1965 Procedure Performed:: Colonoscopy with polypectomy Indications:: History of colon polyps Note: Colonoscopy in August [address] Elías Pan revealed a small adenoma of the cecum. Performing Provider:: Jose Martin Kent MD Referring Provider:: . Sedation:: Monitored anesthesia care Procedure:: After informed consent was obtained the patient was taken to the endoscopy suite. Sedation ensued after the patient was transferred to the left lateral decubitus position. Pulse, blood pressure, and oxygen saturation were monitored throughout the procedure. Digital rectal exam revealed no significant abnormality. The colonoscope was placed in position. The entire colon was evaluated. The colonoscope was carefully removed and the patient was transferred to recovery in stable condition. Please see findings and specimens below for detail. Findings:: Bowel preparation fair to moderate Moderate spasticity/lack of relaxation Hemorrhoidal cushions Sessile cecal polyp Specimens:: Sessile cecal polyp (cold snare) Recommendations:: Timing of repeat colonoscopy is pending pathology but likely be between 3-5 years secondary to history of polyps, fair to moderate preparation, and spasticity/lack of relaxation. Next colonoscopy likely to be deferred to Dr. Elías Pan of the gastroenterology service Complications:: No immediate Estimated blood obtained (mL): 1 Colonoscopy Component Colonoscopy Component Was a colonoscopy performed during today's procedure?: Yes Recommended follow up colonoscopy of at least 10 years?: No If no, follow up colonoscopy recommended in ___ years?: (See above) Reason for not recommending >/= 10 yr follow-up interval?: (See above)
--- NOTE | 2023-08-22 08:43 | P.PNANES_ITS ---
[facility] Anesthesia Record Part I Anesthesia Record I Intake, IV Amount: 300 Hydration: Adequate Estimated blood loss (mL): 1 Urine output (mL): 0 Blood Products used (#): none Blood Pressure: 99/58 SaO2: 94 Pulse Rate: 68 Airway Patency: Patent Respiratory Rate: 16 Temperature: 97.6 F Patient is:: Drowsy and Stable Stable to PACU at:: 08:48
== END 2023-08-22 09:13 | disposition home or self-care (01) ==
PROVIDERS: PCP Family Medicine; Visit Provider Surgery
PROC: 0DJD8ZZ Inspection of Lower Intestinal Tract, Via Natural or Artificial Opening Endoscopic (ICD-10-PCS; CPT 45385; principal; 2023-08-22 08:30)
DX: Z12.11 Encounter for screening for malignant neoplasm of colon (principal); Z86.010 Personal history of colon polyps; K64.9 Unspecified hemorrhoids; D12.0 Benign neoplasm of cecum
CPT/HCPCS: 45385; J7120

== ENCOUNTER 2024-11-25 11:46 | Emergency (ER) | payer BC, SELFPAY ==
[2024-11-25 11:46] VITALS: BP 128/80; PULSE 90; RESP 18; TEMP 37.2; O2SAT 96; BMI 25.7
--- NOTE | 2024-11-25 11:47 | ECG_ITS ---
APPROVED REPORT Exam: Resting ECG HR:92 bpm ECG Measurements Heart Rate 92 AXES NJ 128 P 56 QRSd 85 QRS 68 QT 325 T 55 QTc 375 Conclusion SINUS RHYTHM EARLY REPOLARIZATION [ST ELEVATION WITH NORMALLY INFLECTED T-WAVE] BORDERLINE ECG UNCONFIRMED REPORT Electronically signed by : WESLEY MATTHEWS, 11/26/2024 02:48:47
[2024-11-25 11:58] LABS: Coronavirus 19, PCR Not Detected (NotDetected); Influenza A, PCR Not Detected (NotDetected); Influenza B, PCR Not Detected (NotDetected)
--- NOTE | 2024-11-25 11:58 | PC.NURSE ---
rounded on patient, swab done at this time.
[2024-11-25 12:06] LABS: Albumin Level 4.4 g/dl (3.5-5.0); Chloride 100 mmol/L (98-107); Potassium 4.2 mmoL/L (3.5-5.1); Sodium 137 mmol/L (136-145)
[2024-11-25 12:09] LABS: Alanine Aminotransferase 13 U/L (12-78); Albumin/Globulin Ratio 1.2 (1.1-1.8); Alkaline Phosphatase 68 U/L (38-126); Anion Gap 12.2 mEq/L (5-15); Aspartate Amino Transferase 22 U/L (17-59); Bilirubin,Total 2.5 mg/dl (0.2-1.3); Blood Urea Nitrogen 12 mg/dl (9-20); Calcium 9.1 mg/dl (8.4-10.2); Carbon Dioxide 29 mmol/L (22.0-30.0); Creatinine Clearance Estimated 95 mL/min (50-200); Creatinine,Serum 1.10 mg/dl (0.66-1.25); Estimated Glomerular Filt Rate 69 ml/min (>60); GFR (African American) 83 ML/MIN (>60); Globulin 3.7 g/dL (1.3-3.2); Glucose 133 mg/dl (74-100); Hematocrit 52.2 % (42.0-52.0); Hemoglobin 17.4 g/dL (14.1-18.0); Immature Granulocytes % 0.4 %; Mean Corpuscular HGB Conc 33.3 g/dL (31.8-35.4); Mean Corpuscular Hemoglobin 30.1 pg (27.0-31.2); Mean Corpuscular Volume 90.2 fl (80-94); Nucleated Red Blood Cells % 0 %; Platelet Count 245 K/mm3 (142-424); Red Blood Count 5.79 M/mm3 (4.60-6.20); Red Cell Distribution Width-SD 41.6 fL; Total Protein,Serum 8.1 g/dl (6.3-8.2); White Blood Count 8.6 K/mm3 (4.8-10.8)
--- NOTE | 2024-11-25 12:10 | CT_ITS ---
FINAL REPORT TECHNIQUE: Thin section axial CT images were performed from the lung apices to the upper abdomen after the administration of IV contrast. 3-D and MIP reconstructions performed. This study was performed with techniques to keep radiation doses as low as reasonably achievable (ALARA). Individualized dose reduction techniques using automated exposure control or adjustment of mA and/or kV according to the patient''s size were employed. CLINICAL HISTORY: shortness of breath COMPARISON: 01/17/2020 FINDINGS: There is no evidence for pulmonary embolism. The thoracic aorta is patent without evidence of dissection. There is no axillary adenopathy. There is no mediastinal or hilar adenopathy. The heart size is normal. There is no pleural or pericardial effusion. There is mild atelectasis. Lung window images demonstrate no suspicious pulmonary nodule or infiltrate. Limited images of the upper abdomen are unremarkable. IMPRESSION: No evidence of pulmonary embolism or aortic dissection. Mild atelectasis. Reviewed, Interpreted and Dictated by Marbella Nielsen MD Transcribed by Anne-Marie Mcmullen Authenticated and . [facility]
--- NOTE | 2024-11-25 12:13 | ED_ITS ---
<Statement entered by Grzegorz Farmer MD - 11/25/24 15:01> I was consulted by the MADHURI, and we discussed the complexity of the problems being addressed. I approved the treatment and management plan for this patient's care in the emergency department, thus performing a substantive portion of the medical decision making. Grzegorz Farmer MD, DOMINGO, FACEP Discharge Plan Disposition Patient Disposition: Home, Self-Care Prescriptions Prescriptions: New amoxicillin-pot clavulanate 875-125 mg tablet 1 tab PO BID Qty: 20 0RF azithromycin 500 mg tablet 500 mg PO DAILY Qty: 5 0RF Rx Instructions: 500 mg orally; No Action levothyroxine [Synthroid] 125 mcg tablet 150 mcg PO DAILY magnesium oxide [MagOx] 400 mg (241.3 mg magnesium) tablet 400 mg PO DAILY Patient Comments: TAKE 1 TABLET BY MOUTH ONCE DAILY losartan [Cozaar] 100 mg tablet 100 mg PO DAILY Patient Comments: TAKE 1 TABLET BY MOUTH ONCE DAILY aspirin 81 mg Capsule 81 mg PO DAILY Referrals Follow up/Referrals: Joshua Balbuena MD [Primary Care Provider, Medical] - See instructions Activity Restrictions/Add. Instructions Additional Instructions/Restrictions: Increase fluids and rest. Take Tylenol and Motrin for pain or fevers. Take other medications as directed. Please follow-up with your PCP in follow-up. Clinical Impressions Clinical Impression: Community acquired pneumonia Qualifiers: Laterality: left Lung location: lower lobe of lung Qualified Code(s): J18.9 - Pneumonia, unspecified organism Instructions Patient Instructions: Atypical Pneumonia Print Language Print Language: Estonian Discharge ED Provider: Grzegorz Farmer [facility] General Chief Complaint: Chest Pain Stated Complaint: Chest Pain Time Seen by Provider: 11/25/24 11:59 Mode of Arrival: Ambulatory Source of Information: Patient Description of Symptoms (Recalled from ER Triage Doc. by RN): PT REPORTS BODYACHES, CHEST PAIN WHEN TAKING A DEEP BREATH, WORSE WHEN LYING DOWN. PT REPORTS SORE THROAT AND FEVER. History of Present Illness HPI narrative: 59-year-old male presents to the ED today for complaint of bodyaches, chest pain, difficulty taking a deep breath, sore throat and fever of 102. Patient says he has bodyaches and woke up moaning this morning and having trouble breathing. He does have chest pain. He has had an ablation in the past and COVID-pneumonia. Patient states his shortness of breath is worse when lying down. Denies nausea, vomiting or diarrhea. No abdominal pain. Related Data Home Medications ?Medication ?Instructions ?Recorded ?Confirmed levothyroxine 125 mcg tablet 150 mcg PO DAILY thyroid 12/07/20 08/18/23 (Synthroid) losartan 100 mg tablet (Cozaar) 100 mg PO DAILY 08/18/23 magnesium oxide 400 mg (241.3 mg 400 mg PO DAILY 12/2608/18/23 magnesium) tablet (MagOx) aspirin 81 mg capsule 81 mg PO DAILY 08/22/2308/06 Previous Rx's ?Medication ?Instructions ?Recorded amoxicillin 875 mg-potassium 1 tab PO BID #20 tabs clavulanate 125 mg tablet azithromycin 500 mg tablet 500 mg PO DAILY #5 tabs Allergies Allergy/AdvReac Type Severity Reaction Status Date / Time No Known Allergies Allergy Verified 08/22/23 07:48 [facility] Disclaimer: The information contained in this section may have been updated after the patient was seen, as this information can be updated by other users. Medical History (Updated 11/25/24 @ 14:53 by Viktoriya Johnson (ED), PRODUCT DEVELOPMENT) Hypothyroid Hypertension Surgical History (Updated 08/22/23 @ 07:48 by Antony Stroud RN) History of cardiac radiofrequency ablation History of surgery on lower extremity History of knee surgery History of appendectomy History of tonsillectomy Family History Other No significant family history Social History (Updated 08/22/23 @ 08:04 by Meghann Villa CRNA) Smoking Status: Never smoker alcohol intake: never substance use type: denies use current occupational status: employed Travel in the last 8 weeks?: None household members: spouse housing: house caffeine: No Have you lived/traveled outside US in past 30 days?: No Contact w/someone who lives/traveled outside US past 30 days?: No Exposure to someone with infectious disease in past 14 days?: No Do you have a fever (greater than 100.4 F or 38 C)?: No Have you tested positive for COVID-19?: No Exposed to someone with COVID-19 in past 14 days?: No Do you have a sore throat?: No Do you have a cough?: No Do you have any weakness?: No Do you have any diarrhea?: No Are you experiencing any unusual bleeding?: No Do you have any muscle aches/pain?: No Do you have any abdominal pain?: No Are you experiencing loss of taste or smell?: No Other Medical History Have you received the Flu Vaccine for this season: Yes Have you received the Pneumonia Vaccine: No ROS Obtained: Yes Systems reviewed as appropriate & no additional complaints except as documented Constitutional Constitutional: Reports as per HPI Physical Exam General General appearance: alert Head Head exam: normocephalic Eye Eye exam: Present PERRL and EOMI ENT ENT exam: Present mucous membranes moist Neck Neck exam: Present full ROM and trachea midline Respiratory Respiratory exam: Present normal lung sounds bilaterally Cardiovascular Cardiovascular exam: Present regular rate, normal rhythm, normal heart sounds, +S1 and +S2 Abdominal Exam Abdominal exam: Present soft and normal bowel sounds Extremities Exam Extremities exam: Present normal inspection, full ROM and normal capillary refill Neurological Exam Neurological exam: Present alert and oriented X3 Skin Skin exam: Present warm, dry and intact HEART Score HEART Score HEART Score assessment performed?: Yes History (anamnesis): Slightly suspicious ECG: Normal Age: 45-65 years Risk factors: 1-2 risk factors Troponin: </= normal limit HEART Score: 2 Critical Care Critical Care Time Critical Care Time: No Medical Decision Making Peter Inquiry Pt receiving controlled substance: No Peter was queried for this patient: No Vital Signs Vital Signs: 11/25/24 11:46 11/25/24 14:24 Temperature 99.0 F 98.6 F Temperature Source Oral Oral Pulse Rate [Apical] 90 Respiratory Rate 18 Blood Pressure [Left Arm] 128/80 Blood Pressure Mean [Left Arm] 96 Blood Pressure Source [Left Arm] Automatic Cuff Blood Pressure Position [Left Arm] Sitting 02 Sat by Pulse Oximetry 96 Oxygen Delivery Method Room Air Lab Data Labs: Lab Results 11/25/24 11:49: SARS-CoV-2 (PCR) Not detected, Influenza A Untype (PCR) Not detected, Influenza Type B (PCR) Not detected 11/25/24 11:54: WBC 8.6, RBC 5.79, Hgb 17.4, Hct 52.2 H, MCV 90.2, MCH 30.1, MCHC 33.3, RDW 12.7, Plt Count 245, MPV 11.5 H, Neut % (Auto) 67.6, Lymph % (Auto) 14.1, [place] % (Auto) 16.1 H, Eos % (Auto) 1.1, Baso % (Auto) 0.7, Neut # (Auto) 5.8, Lymph # (Auto) 1.2, [place] # (Auto) 1.4 H, Eos # (Auto) 0.1, Baso # (Auto) 0.1, D-Dimer 0.46, Sodium 137, Potassium 4.2, Chloride 100, Carbon Dioxide 29, Anion Gap 12.2, BUN 12, Creatinine 1.10, Estimated Creat Clear 95, Estimated GFR 69, Est GFR ( Amer) 83, Glucose 133 H, Calcium 9.1, Magnesium 1.8, Total Bilirubin 2.5 H, AST 22, ALT 13, Alkaline Phosphatase 68, Troponin I < 0.01 11/25/24 11:54: Troponin I Cancelled, NT-Pro-B Natriuret Pep 263 H, Total Protein 8.1, Albumin 4.4, Globulin 3.7 H, Albumin/Globulin Ratio 1.2, Lipase 31, HCV Ab REJI w/Rflx PCR Qn Negative, HIV Ag/Ab Combo Qual Negative 11/25/24 11:54 11/25/24 11:54 Response Orders (Tests/Meds): ED MEDICATIONS Generic Name Dose Route Start Last Admin Trade Name Freq PRN Reason Stop Dose Admin Azithromycin 500 mg/ Sodium 250 mls @ 250 mls/hr 11/25/24 13:15 11/25/24 13:54 Chloride IV 12/05/24 13:14 250 mls/hr Q24H MYCHAL Administration Discontinued Medications Generic Name Dose Route Start Last Admin Trade Name Freq PRN Reason Stop Dose Admin Acetaminophen 1,000 mg 11/25/24 12:11 11/25/24 12:15 Acetaminophen 1,000mg/100ml Vial IV 11/25/24 12:12 1,000 mg ONCE ONE Administration Amoxicillin/Clavulanate Potassium 1 each 11/25/24 13:15 11/25/24 13:55 Amoxicillin/Clavulanate Potassium 875/125mg Tablet PO 11/25/24 13:16 1 each ONCE ONE Administration Sodium Chloride 1,000 mls @ 999 mls/hr 11/25/24 12:11 11/25/24 13:30 Sod Chlor 0.9% 1000ml Bag IV 11/25/24 13:11 Infused .Q1H1M ONE Infusion Iopamidol 75 ml 11/25/24 12:30 11/25/24 12:31 Iopamidol-370 (76%);100ml Bottle IV 11/25/24 12:31 75 ml ONCE ONE Administration Ketorolac Tromethamine 30 mg 11/25/24 12:11 11/25/24 12:15 Ketorolac 30mg/Ml Vial IV 11/25/24 12:12 30 mg ONCE ONE Administration Sodium Chloride 50 ml 11/25/24 12:30 11/25/24 12:31 0.9 % Sodium Chloride 50 Ml Vial IV 11/25/24 12:31 50 ml ONCE ONE Administration Sodium Chloride 10 ml 11/25/24 12:30 11/25/24 12:31 Sodium Chloride 0.9% 10ml Syr (Rad Only) IV 11/25/24 12:31 10 ml ONCE ONE Administration ORDERS Category Date Time Status CTA Chest [CT angio chest PE protocol] Stat Cat Scan 11/25/24 12:10 Completed BNP [NT Pro Brain Natriuretic Pep.] Stat Lab 11/25/24 11:54 Completed Complete Blood Count Auto Diff Stat Lab 11/25/24 11:54 Completed Comprehensive Metabolic Panel Stat Lab 11/25/24 11:54 Completed D-Dimer Stat Lab 11/25/24 11:54 Completed HIV Combo Stat Lab 11/25/24 11:54 Completed Hepatitis C Ab Qual. W/ RFX Stat Lab 11/25/24 11:54 Completed Lipase Stat Lab 11/25/24 11:54 Completed Magnesium Stat Lab 11/25/24 11:54 Completed Rapid PCR Covid and Flu A/B Stat Lab 11/25/24 11:49 Completed Troponin I Q3H Lab 11/25/24 15:00 Ordered Troponin I Q3H Lab 11/25/24 18:00 Ordered Troponin I Stat Lab 11/25/24 11:54 Completed MDM Narrative Medical Decision Narrative: patient is a 59-year-old male presenting to the emergency department for evaluation of shortness of breath, chest pain, fever. Patient is hemodynamically stable and nontoxic-appearing upon arrival, fever of 99 currently. Differential diagnosis includes flu, COVID, other viral illness, ACS. Workup will be conducted with hematologic labs, specific imaging. Initial inventions include crystalloid bolus, analgesics. Initial workup reviewed by me hematologic labs are remarkable for. Normal white count of 8.6, dimer of 0.46, BNP of 263, flu and COVID were negative. Imaging completed today with CTA because patient was short of breath. It showed no evidence of pulmonary embolism or aortic dissection but did show mild atelectasis. I do want to treat for pneumonia as it did show small suspicious area on the right. Will treat with azithromycin and Augmentin for pneumonia. Patient updated. 1449 update patient has eaten half of a sandwich and drink fluids eating chips at this point, patient looks much better. Discussed with patient return precautions and follow-up treatment. Patient safe for discharge home.
[2024-11-25] MEDS: ACETAMINOPHEN 1,000MG/100ML VIAL 1000 MG IV (12:15)
[2024-11-25] MEDS: 0.9 % SODIUM CHLORIDE 1000ML 1,000 ML 999 ML IV (12:15)
[2024-11-25] MEDS: KETOROLAC 30MG/ML VIAL 30 MG IV (12:15)
[2024-11-25 12:23] LABS: Lipase 31 U/L (23-300); Troponin I < 0.01 ng/ml (0.00-0.034)
[2024-11-25 12:24] LABS: Magnesium 1.8 mg/dl (1.6-2.3)
[2024-11-25 12:28] LABS: D-Dimer 0.46 ug/mL (0.0-0.5)
--- NOTE | 2024-11-25 12:30 | PC.NURSE ---
PT TO CT
[2024-11-25] MEDS: 0.9 % SODIUM CHLORIDE 50 ML VIAL IV (12:31)
[2024-11-25] MEDS: SODIUM CHLORIDE 0.9% 10ML SYR (RAD ONLY) 10 ML IV (12:31)
[2024-11-25] MEDS: IOPAMIDOL-370 (76%);100ML BOTTLE 75 ML IV (12:31)
[2024-11-25 12:34] LABS: NT Pro Brain Natriuretic Pep. 263 pg/mL (0-125)
--- NOTE | 2024-11-25 12:34 | PC.NURSE ---
PT RETURNED FROM CT
--- NOTE | 2024-11-25 12:41 | PC.NURSE ---
ROUNDED ON PT, NO NEEDS AT THIS TIME. CALL LIGHT WITHIN REACH
[2024-11-25 13:11] LABS: Hepatitis C Ab Qual. W/ RFX NEGATIVE (Negative)
[2024-11-25] MEDS: AZITHROMYCIN 500 MG in 0.9 % SODIUM CHLORIDE 250 ML 250 MG IV (13:54)
[2024-11-25] MEDS: AMOXICILLIN/CLAVULANATE POTASSIUM 875/125MG TABLET 1 EACH PO (13:55)
[2024-11-25 14:24] VITALS: TEMP 37
[2024-11-25 15:01] VITALS: BP 137/85; PULSE 73; RESP 18; TEMP 37; O2SAT 97
== END 2024-11-25 15:02 | disposition home or self-care (01) ==
PROVIDERS: Nurse Practitioner; Emergency Provider Student in an Organized Health Care Education/Training Program; PCP Family Medicine
DX: J18.9 Pneumonia, unspecified organism (principal); R07.1 Chest pain on breathing; R06.02 Shortness of breath; R50.9 Fever, unspecified; I10 Essential (primary) hypertension
CPT/HCPCS: 71275; 80053; 83690; 83735; 83880; 84484; 85025; 85378; 86803; 87389; 87636; 93005; 96361; 96365; 96366; 96375; 99285; J0131; J0456; J1885; J7030; J7050; Q9967

== ENCOUNTER 2024-11-28 08:04 | Observation (INO) | payer BC, SELFPAY ==
[2024-11-28] VITALS (15 sets, daily range): BP systolic 120–138; BP diastolic 66–89; PULSE 66–107; RESP 12–18; TEMP 36.7–37.5; O2SAT 95–99; BMI 25.7; BMI 25.9
--- NOTE | 2024-11-28 08:22 | ECG_ITS ---
APPROVED REPORT Exam: Resting ECG HR:100 bpm ECG Measurements Heart Rate 100 AXES MI 139 P 67 QRSd 84 QRS 59 QT 319 T 56 QTc [address] DEVIATION AND MODERATE T-WAVE ABNORMALITY, CONSIDER LATERAL ISCHEMIA [-0.1+ mV T-WAVE IN I/aVL/V5/V6] ST DEVIATION AND MODERATE T-WAVE ABNORMALITY, CONSIDER INFERIOR ISCHEMIA [-0.1+ mV T-WAVE IN II/aVF] ABNORMAL ECG UNCONFIRMED REPORT Sinus tachycardia. No ST elevation or depression. T wave inversions in leads II, III and aVF. QTc 376 Electronically signed by : BETTY STEVENS, 11/28/2024 10:43:09
--- OUTSIDE RECORDS SUMMARY | 2024-11-28 08:25 | XMS_ITS | Clinical Summary ---
Author Organization [facility] Address [address] [id number] Care Team Providers Care Play Writer Name Role Phone Joshua Balbuena MD Primary Care Provider [phone] Allergies No known active allergies Medications levothyroxine (Synthroid, Levoxyl) 150 MCG tablet Take 125 mcg by mouth 1 (one) time each day before breakfast. Active magnesium oxide (Mag-Ox) 400 (240 Mg) MG tablet Take 1 tablet (400 mg total) by mouth 1 (one) time each day. 30 tablet 3 03/24/2021 Active losartan (Cozaar) 100 MG tablet Take 1 tablet (100 mg) by mouth 1 (one) time each day. 04/26/2021 Active aspirin 81 MG EC tablet Take 1 tablet (81 mg) by mouth 1 (one) time each day. Active Active Problems Problem Noted Date Diagnosed Date Adenopathy 03/13/2024 Dehydration, mild 03/13/2024 Fever 03/13/2024 Tibial plateau fracture 03/13/2024 Viral gastroenteritis due to rotaviruses 025 A-fib 03/22/2021 Atrial flutter 01/26/2021 Myopia 03/23/2010 Overview (01/26/2021): Tachycardia Dizziness PAF (paroxysmal atrial fibrillation) Essential hypertension Thyroid disease Kidney stones Resolved Problems Problem Noted Date Diagnosed Date Resolved Date Community acquired pneumonia 03/13/2024 10/27/2024 Pharyngitis 03/13/2024 10/27/2024 S/P ablation of atrial fibrillation 03/29/2022 10/27/2024 Presbyopia 03/23/2010 10/27/2024 Overview (01/26/2021): Chest pain 10/27/2024 Snoring 10/27/2024 Daytime somnolence Obstructive sleep apnea 09/2021 Immunizations Immunization Administration Dates Next Due Hep A, Adult 08/28/2018,01/23/2018 Influenza, injectable, quadrivalent 10/30/2020 Influenza, injectable, quadr ivalent, preservative free 11/30/2022,11/17/2021,11/13/2018,2017 Family History Medical History Relation Name Comments Cancer Mother Heart attack Mother Hypertension Mother Relation Name Status Comments Mother Social History Tobacco Use Types Packs/Day Years Used Date Smoking Tobacco: Never Smokeless Tobacco: Never Tobacco Cessation:Counseling Given: Not Answered Alcohol Use Standard Drinks/Week Comments Never 0 (1 standard drink = 0.6 oz pur e alcohol) PHQ-2 Answer Date Recorded Patient Health Questionnaire-2 Score 0 03/28/2023 Sex and Gender Information Value Date Recorded Sex Assigned at Male 01/19/2021 2:19 PM EST Legal Sex Male 3:03 PM EST Gender Identity Male 01/19/2021 2:19 PM EST Sexual Orientation Straight 01/19/2021 2: 19 PM EST Last Filed Vital Signs Vital Sign Reading Time Taken Comments Blood Pressure 144/84 03/28/2023 11:18 AM EST Pulse 87 03/28/2023 11:18 AM EST Temperature 36.8 C (98.2 F) 03/23/2021 11:21 AM EST Respiratory Rate 20 03/23/2021 11:0 0 AM EST Oxygen Saturation 98% 03/28/2023 11: 18 AM EST Inhaled Oxygen Concentration - - Weight 81.6 kg (179 lb 14.3 oz) 024 11:18 AM EST Height 188 cm (6' 2 ) 03/28/2023 11:18 AM EST Body Mass Index 23.1 03/28/2023 11:18 AM EST Plan of Treatment Health Maintenance Due Date Last Done Comments [facility]-HIV Screening 1967 [facility]-Hepatitis C Screening 1967 [facility]-Infant/Child/Adol SDOH Screenings 1967 [facility]- SDOH Screenings 1985 [facility]-Adult SDOH Screenings 1985 [facility]-DTaP,Tdap,and Td Vaccines (1 - Tdap) 1986 [facility]-Hepatitis B Vaccines (1 of 3 - 19+ 3-dose series) 1986 CT Colonography 2012 Colonoscopy 2012 FIT-DNA 2012 FIT 2012 FOBT 2012 Sigmoidoscopy 2012 [facility]-Colorectal Cancer Screening 2012 [facility]-Pneumococcal Vaccine: 50+ Years (1 of 1 - PCV) 2017 [facility]-Zoster Vaccines (1 of 2) 2017 [id number] Vaccine (3 - Pfizer risk series) 07/11/2020 06/13/2020, 05/15/2020 [facility]-Depression Screening 03/28/2024 03/28/2023 [facility]-Influenza Vaccine (#1) 10/07/202411/30, 11/17/2021, 10/30/2020, Additional history exists [facility]-Hepatitis A Vaccines Aged Out 08/28/2018, 01/06 No longer eligible based on patient's age to complete this topic HPV Vaccines Aged Out No longer eligi ble based on patient's age to complete this topic [facility]-HIB Vaccines Aged Out No longer e ligible based on patient's age to complete this topic [facility]-IPV Vaccines Aged Out No longer e ligible based on patient's age to complete this topic [facility]-Rotavirus Vaccines Aged Out No lo nger eligible based on patient's age to complete this topic Insurance [employer] Advance Directives * Full Code (Latest Code Status on File) Date Activated Date Inactivated Comments 03/23/2021 7:51 AM 03/23/2021 4:40 PM Question Answer Comments Patient has decision-making capacity? Yes * Full Code Date Activated Date Inactivated Comments 03/22/2021 4:35 PM 03/23/2021 7:51 AM Question Answer Comments Patient has decision-making capacity? Yes Care Teams Play Writer Relationship Specialty Start Date End Date Joshua Balbuena MD [address] [place] [address] PCP - General 03/02/20
--- OUTSIDE RECORDS SUMMARY | 2024-11-28 08:25 | XMS_ITS | Clinical Summary ---
Author Organization [facility] Address [address] [place] [id number] Phone [email or web address] Care Team Providers Care Propulsion Motor And Generator Repairer Name Role Phone Unavailable Primary Care Provider Unavailabl e Allergies No known active allergies Medications levothyroxine (SYNTHROID) 125 MCG tablet TAKE 1 TABLET BY MOUTH ONCE DAILY FOR 90 DAYS 12/30/2019 Active rivaroxaban (Xarelto) 20 MG tablet Take 20 mg by mouth. 12/28/2020 Active Active Problems Problem Noted Date Diagnosed Date Myopia 03/23/2010 Overview (07/05/2017): Presbyopia 03/23/2010 Overview (07/05/2017): Routine general medical exam ination at a health care facility 04/29/2009 Overview (07/05/2017): Health examination of defined subpopulation 04/07 Overview (07/05/2017): Other examination of ears and hearing 03/19/2007 Overview (07/05/2017): Immunizations Immunization Administration Dates Next Due COVID-19 (Pfizer [place] 12 yrs+) ([id number]) 021,05/15/2020 Social History Tobacco Use Types Packs/Day Years Used Date Smoking Tobacco: Never Smokeless Tobacco: Never Alcohol Use Standard Drinks/Week Comments Defer 0 (1 standard drink = 0.6 oz pur e alcohol) Intimate Partner Violence Answer Date R ecorded Insults You Not on file 05/20/2020 Threatens You Not on file 05/20/2020 Screams at You Not on file 05/20/2020 Physically Hurt Not on file 05/20/2020 Intimate Partner Violence Score Not on file 05/20/2020 Alcohol Use Answer Date Recorded Alcohol Use Status Defer 04/05/2021 Depression Answer Date Recorded PHQ Total Score 0 11/20/2021 Stress Answer Date Recorded Stress in your Life Not on file 12/11/2023 Dealing with Stress 3 12/11/2023 Sex and Gender Information Value Date Recorded Sex Assigned at Not on file Legal Sex Male 10:02 AM CDT Gender Identity Not on file Sexual Orientation Not on file Last Filed Vital Signs Vital Sign Reading Time Taken Comments Blood Pressure 150/82 04/05/2021 2:37 PM EST Pulse 87 04/05/2021 2:37 PM EST Temperature 36.2 C (97.2 F) 04/05/2021 2:37 PM EST Respiratory Rate 18 04/05/2021 2:37 PM EST Oxygen Saturation 99% 04/05/2021 2:37 PM EST Inhaled Oxygen Concentration - - Weight 88 kg (194 lb) 08/04/2017 10:56 PM EDT Height 188 cm (6' 2 ) 08/04/2017 10:56 PM EDT Body Mass Index 24.91 08/04/2017 10:56 PM EDT Plan of Treatment Health Maintenance Due Date Last Done Comments CT Colonography 1967 Colonoscopy 1967 Colorectal Cancer Screening Combo 1967 DNA Cologuard 1967 Dental Cleaning/Exam 1967 FIT or FOBT Test 1967 HIV Screening 1967 Hepatitis C Screening 1967 Sigmoidoscopy 1967 Annual Preventive Exam 1985 Hep B Infection Screening - Triple Screen 1985 Hepatitis B Immunization (1 of 3 - 19+ 3-dose series) 1986 Tetanus Diphtheria and Pertussis Immunization (1 - Tdap) 1986 Pneumococcal: 50+ Years (1 o f 1 - PCV) 2017 Zoster Immunization (1 of 2) 2017 Covid-19 Immunization (3 - season) 2024 06/13/2020, 05/15/2020 Influenza Immunization (#1) 2024 HIB Immunization Aged Out No longer e ligible based on patient's age to complete this topic HPV Immunization Aged Out No longer e ligible based on patient's age to complete this topic Hepatitis A Immunization Aged Out No longer eligible based on patient's age to complete this topic Polio Immunization Aged Out No longer eligible based on patient's age to complete this topic Insurance [employer] [address] [id number] [place] [address] [facility]
--- NOTE | 2024-11-28 08:26 | XR_ITS ---
FINAL REPORT CLINICAL HISTORY: SOB, pneumonia COMPARISON: 02/12/2021 FINDINGS: No acute pulmonary density is evident. There is no evidence of effusion or other pleural disease. The mediastinum has a normal appearance. The cardiac silhouette is unremarkable. IMPRESSION: Unremarkable chest exam. Reviewed, Interpreted and Dictated by Marbella Nielsen MD Transcribed by Natalia Shay Authenticated and [facility]
--- NOTE | 2024-11-28 08:32 | HMH.EDGENADL ---
Discharge Plan Disposition Patient Disposition: Admitted Prescriptions Prescriptions: No Action tamsulosin 0.4 mg capsule 0.4 mg PO DAILY Patient Comments: TAKE 1 CAPSULE BY MOUTH ONCE DAILY azithromycin 500 mg tablet 500 mg PO DIRECTED levothyroxine [Synthroid] 125 mcg tablet 150 mcg PO DAILY magnesium oxide [MagOx] 400 mg (241.3 mg magnesium) tablet 400 mg PO DAILY Patient Comments: TAKE 1 TABLET BY MOUTH ONCE DAILY losartan [Cozaar] 100 mg tablet 100 mg PO DAILY Patient Comments: TAKE 1 TABLET BY MOUTH ONCE DAILY aspirin 81 mg Capsule 81 mg PO DAILY amoxicillin-pot clavulanate 875-125 mg tablet 1 tab PO BID Qty: 20 0RF Referrals Follow up/Referrals: Joshua Balbuena MD [Primary Care Provider, Medical] - See instructions Clinical Impressions Clinical Impression: Sepsis, Pneumonia Print Language Print Language: Austrian Discharge ED Provider: Alexys Dos Santos General Adult HPI General Chief complaint: Weakness Stated complaint: Fever 102, SOA, Chest tightness Time Seen by Provider: 11/28/24 08:17 Mode of Arrival: Ambulatory Source of Information: Patient Description of Symptoms (Recalled from ER Triage Doc. by RN): patient states he was diagnosed with pneumonia on monday and is no better running fevers weak and chest tightness, also mentions his stool looks tarry History of Present Illness HPI narrative: Doe Gillespie is a 59y male with a history of A-fib who was seen in the emergency department 3 days ago and diagnosed with pneumonia. He states that starting on Monday of last week, he states that he developed shortness of breath and chest pain with deep breathing. He has had fevers 102 that have continued despite being on antibiotics, azithromycin and Augmentin, since Monday. Reports that he feels like his symptoms are getting worse. He notes that his breath smells abnormally bad and he is belching a lot with a sore throat. He also has pain rating up into his neck but no difficulty swallowing or changes in his voice. He does feel short of breath with a cough. He also notes that he has had loose stool that he describes as black and tarry . He denies any abdominal pain or vomiting. Patient received Advil this morning for a fever of 102 at home. Related Data Home Medications ?Medication ?Instructions ?Recorded ?Confirmed levothyroxine 125 mcg tablet 150 mcg PO DAILY 12/07/20 11/28/24 (Synthroid) losartan 100 mg tablet (Cozaar) 100 mg PO DAILY 12/26/22 11/28/24 magnesium oxide 400 mg (241.3 mg 400 mg PO DAILY 12/26/22 11/28/24 magnesium) tablet (MagOx) aspirin 81 mg capsule 81 mg PO DAILY 08/22/23 11/28/24 azithromycin 500 mg tablet 500 mg PO DIRECTED 11/28/24 11/28/24 tamsulosin 0.4 mg capsule 0.4 mg PO DAILY 11/28/24 11/28/24 Previous Rx's ?Medication ?Instructions ?Recorded amoxicillin 875 mg-potassium 1 tab PO BID #20 tabs 11/25/24 clavulanate 125 mg tablet Allergies Allergy/AdvReac Type Severity Reaction Status Date / Time No Known Allergies Allergy Verified 08/22/23 07:48 [facility] [place] Disclaimer: The information contained in this section may have been updated after the patient was seen, as this information can be updated by other users. Medical History (Updated 11/28/24 @ 09:19 by Alexys Dos Santos MD) Hypothyroid Hypertension Surgical History (Updated 08/22/23 @ 07:48 by Antony Stroud RN) History of cardiac radiofrequency ablation History of surgery on lower extremity History of knee surgery History of appendectomy History of tonsillectomy Family History Other No significant family history Social History (Updated 08/22/23 @ 08:04 by Meghann Villa CRNA) Smoking Status: Never smoker alcohol intake: never substance use type: denies use current occupational status: employed Travel in the last 8 weeks?: None household members: spouse housing: house caffeine: No Have you lived/traveled outside [place] in past 30 days?: No Contact w/someone who lives/traveled outside US past 30 days?: No Exposure to someone with infectious disease in past 14 days?: No Do you have a fever (greater than 100.4 F or 38 C)?: Yes Have you tested positive for COVID-19?: No Exposed to someone with COVID-19 in past 14 days?: No Do you have a sore throat?: No Do you have a cough?: No Do you have any weakness?: No Do you have any diarrhea?: No Are you experiencing any unusual bleeding?: No Do you have any muscle aches/pain?: No Do you have any abdominal pain?: No Are you experiencing loss of taste or smell?: No Other Medical History Have you received the Flu Vaccine for this season: Yes Have you received the Pneumonia Vaccine: No ROS Obtained: Yes Systems reviewed as appropriate & no additional complaints except as documented Physical Exam General General appearance: alert and in no apparent distress Head Head exam: atraumatic Eye Eye exam: Present normal appearance ENT ENT exam: Present normal external ear exam Neck Neck exam: Present full ROM Chest Chest inspection: Present symmetric chest wall rise Respiratory Respiratory exam: Present normal lung sounds bilaterally; Absent respiratory distress Cardiovascular Cardiovascular exam: Present normal rhythm and tachycardia Abdominal Exam Abdominal exam: Present soft; Absent tenderness or guarding exam: Present deferred Extremities Exam Extremities exam: Present normal inspection Back Exam Back exam: Present normal inspection Neurological Exam Neurological exam: Present alert and oriented X3 Psychiatric Psychiatric exam: Present normal affect Skin Skin exam: Present warm and dry Medical Decision Making Medical Records Screening: Per USPSTF and CDC recommendations, given the prevalence of disease in our region, it is our hospital?s policy to screen for HIV and viral Hepatitis for all patients aged 18 and over and those with ongoing risk factors. Peter Inquiry Pt receiving controlled substance: No Vital Signs: 11/28/24 08:09 11/28/24 08:17 11/28/24 08:37 Temperature 98.9 F Temperature Source Oral Pulse Rate 107 H 98 H Pulse Rate [Right Radial] 105 H Respiratory Rate 14 12 Blood Pressure 128/89 126/82 Blood Pressure [Right Arm] 128/89 Blood Pressure Mean [Right Arm] 102 Blood Pressure Source [Right Arm] Automatic Cuff Blood Pressure Position [Right Arm] Supine 02 Sat by Pulse Oximetry 95 96 97 Oxygen Delivery Method Room Air Room Air Room Air 11/28/24 09:00 11/28/24 09:30 11/28/24 10:00 Temperature Temperature Source Pulse Rate 88 89 Pulse Rate [Right Radial] Respiratory Rate 15 14 18 Blood Pressure 133/88 129/87 128/83 Blood Pressure [Right Arm] Blood Pressure Mean [Right Arm] Blood Pressure Source [Right Arm] Blood Pressure Position [Right Arm] 02 Sat by Pulse Oximetry 95 96 Oxygen Delivery Method Room Air Room Air 11/28/24 10:30 11/28/24 11:00 Temperature Temperature Source Pulse Rate Pulse Rate [Right Radial] Respiratory Rate 16 18 Blood Pressure 130/81 120/77 Blood Pressure [Right Arm] Blood Pressure Mean [Right Arm] Blood Pressure Source [Right Arm] Blood Pressure Position [Right Arm] 02 Sat by Pulse Oximetry Oxygen Delivery Method Lab Data Lab Results 11/28/24 08:17: WBC 14.4 H D, RBC 5.61, Hgb 16.8, Hct 50.0, MCV 89.1, MCH 29.9, MCHC 33.6, RDW 12.3, Plt Count 311 D, MPV 10.7 H, Neut % (Auto) 87.6 H, Lymph % (Auto) 4.7 L, [place] % (Auto) 5.9, Eos % (Auto) 0.9, Baso % (Auto) 0.6, Neut # (Auto) 12.6 H, Lymph # (Auto) 0.7, [place] # (Auto) 0.9, Eos # (Auto) 0.1, Baso # (Auto) 0.1, Sodium 138, Potassium 3.8, Chloride 102, Carbon Dioxide 25, Anion Gap 14.8, BUN 9, Creatinine 1.00, Estimated Creat Clear 105, Estimated GFR 77, Est GFR ( Amer) 93, Glucose 134 H, Lactate 1.8, Calcium 8.8, Total Bilirubin 0.9, AST 35 D, ALT 24 D, Alkaline Phosphatase 81, Troponin I < 0.01, C-Reactive Protein 59.5 H, NT-Pro-B Natriuret Pep 149 H, Total Protein 7.9, Albumin 4.1, Globulin 3.8 H, Albumin/Globulin Ratio 1.1, TSH 7.34 H, Free T4 1.16, Monoscreen Negative 11/28/24 08:34: Stool Occult Blood Negative 11/28/24 08:36: Chlamy pneumoniae PCR Not detected, Adenovirus (PCR) Not detected, B. pertussis DNA (PCR) Not detected, Coronavirus OC43 (PCR) Not detected, Coronavirus HKU1 (PCR) Not detected, Coronavirus 229E (PCR) Not detected, SARS-CoV-2 (PCR) Not detected, Coronavirus NL63 (PCR) Not detected, Human Metapneumovir PCR Not detected, Influenza A (H1) PCR Not detected, Influ A (H1N1/09) PCR Not detected, Influenza A (H3) PCR Not detected, Influenza Type A (PCR) Not detected, Influenza Type B (PCR) Not detected, M. pneumoniae (PCR) Not detected, Parainfluenza 1 (PCR) Not detected, Parainfluenza 2 (PCR) Not detected, Parainfluenza 3 (PCR) Not detected, Parainfluenza 4 (PCR) Not detected, RSV (PCR) Not detected, Entero/Rhino (PCR) Not detected 11/28/24 09:41: Group A Strep Rapid Negative 11/28/24 11:52: Troponin I < 0.01 11/28/24 08:17 11/28/24 08:17 Orders (Tests/Meds): ED MEDICATIONS Discontinued Medications Generic Name Dose Route Start Last Admin Trade Name Maciejq PRN Reason Stop Dose Admin Acetaminophen 1,000 mg 11/28/24 11:56 11/28/24 12:13 Acetaminophen 500mg Tab PO 11/28/24 11:57 1,000 mg ONCE ONE Administration Aspirin 325 mg 11/28/24 08:33 11/28/24 08:46 Aspirin 325mg Tablet PO 11/28/24 08:34 325 mg ONCE ONE Administration Lactated Ringer's 2,470 mls @ 1,235 mls/hr 11/28/24 08:26 11/28/24 11:58 Lactated Ringer's 1000 Ml Bag 30 ml/kg infuse over 2 hr (2470 ml) 11/28/24 10:25 Infused IV Infusion .Q2H ONE Ceftriaxone Sodium 2 gm/ 100 mls @ 200 mls/hr 11/28/24 08:31 11/28/24 09:31 Sodium Chloride IV 11/28/24 09:00 Infused ONCE ONE Infusion Azithromycin 500 mg/ Sodium 250 mls @ 250 mls/hr 11/28/24 08:32 11/28/24 11:59 Chloride IV 11/28/24 08:33 Infused ONCE ONE Infusion Levofloxacin/Dextrose 750 mg in 150 mls @ 100 mls/hr 11/28/24 09:52 11/28/24 12:12 Levofloxacin 750mg/150ml Premix IV 11/28/24 11:21 100 mls/hr ONCE ONE Administration Ketorolac Tromethamine 15 mg 11/28/24 09:30 11/28/24 09:39 Ketorolac 15mg/Ml Vial IV 11/28/24 09:31 15 mg ONCE ONE Administration ORDERS Category Date Time Status CXR 2 view (NOT portable) [XR chest 2V] Stat Exams 11/28/24 08:26 Completed POCUS Point of Care (ER Only) Stat Exams 11/28/24 08:45 Completed BNP [NT Pro Brain Natriuretic Pep.] Stat Lab 11/28/24 08:17 Completed CMP [Comprehensive Metabolic Panel] Stat Lab 11/28/24 08:17 Completed CRP [C-Reactive Protein] Stat Lab 11/28/24 08:17 Completed Complete Blood Count Auto Diff Stat Lab 11/28/24 08:17 Completed Free T4 (Free Thyroxine) Stat Lab 11/28/24 08:17 Completed Full Resp Panel w/COVID (H) Routine Lab 11/28/24 08:36 Completed Lactic Acid Stat Lab 11/28/24 08:17 Completed Monoscreen (Rapid) Stat Lab 11/28/24 08:17 Completed Occult Blood,Stool Stat Lab 11/28/24 08:34 Completed Strep Scrn Group A (Rapid) Stat Lab 11/28/24 09:41 Completed TSH [Thyroid Stimulating Hormone] Stat Lab 11/28/24 08:17 Completed Troponin I Q3H Lab 11/28/24 11:52 Completed Troponin I Q3H Lab 11/28/24 14:30 Ordered Troponin I Stat Lab 11/28/24 08:17 Completed UA [Urinalysis and Microscopic] Stat Lab 11/28/24 12:03 Received Blood Culture Stat Micro 11/28/24 08:47 Received Strep Screen Confirmation Stat Micro 11/28/24 09:41 Received ECG Data Tracing #1: I reviewed this ECG and interpreted as documented below: Sinus tachycardia. No ST elevation or depression. T wave inversions in leads II to III and aVF, which appear new from previous EKGs. Medical Decision Narrative: Doe Gillespie is a 59y male with a history of A-fib who was seen in the emergency department 3 days ago and diagnosed with pneumonia. He states that starting on Monday of last week, he states that he developed shortness of breath and chest pain with deep breathing. He has had fevers 102 that have continued despite being on antibiotics, azithromycin and Augmentin, since Monday. Reports that he feels like his symptoms are getting worse. He notes that his breath smells abnormally bad and he is belching a lot with a sore throat. He also has pain rating up into his neck but no difficulty swallowing or changes in his voice. He does feel short of breath with a cough. He also notes that he has had loose stool that he describes as black and tarry . He denies any abdominal pain or vomiting. Patient received Advil this morning for a fever of 102 at home. On arrival, patient is normotensive, tachycardic with a heart rate of 105 bpm. Temperature 98.9 ?F. 96% on room air. Physical exam, as stated above, revealed nontoxic-appearing male in no respiratory distress. He speaking full sentences with no subjective shortness of breath. Abdomen is soft, nontender nondistended. Cardiopulmonary exam revealed tachycardia but no murmurs or rubs. No wheezing, rales or rhonchi. Patient reports black tarry stools but would like to try to produce a stool sample for Hemoccult testing. Throat looks nonerythematous with no lesions. Differential diagnosis includes, but is not limited to: Sepsis, pneumonia, ACS, pericarditis, thyroiditis, mononucleosis, strep pharyngitis, viral pharyngitis, viral respiratory illness, pericardial effusion, low concern for pulmonary embolism or aortic dissection as patient had CT imaging on the when symptoms began and was negative for PE or dissection. Reported mild atelectasis at that time. Patient's EKG was interpreted by me personally shows sinus tachycardia. There are inverted T waves in the inferior leads but no ST elevations or depressions. These inversions are new compared to previous EKG obtained on the . Given patient's fever and tachycardia, will obtain blood cultures, CBC, CMP, CRP, troponin, EKG, two-view chest x-ray, full respiratory panel, Hemoccult testing, TSH/free T4. Patient does take a daily aspirin but is not taken 1 this morning. Will give 3 to 25 mg of aspirin. Will start patient on sepsis bolus fluids and give Rocephin and azithromycin IV for presumed sepsis secondary to pneumonia. [id number] cardiac and lung ultrasounds were performed by me personally. These were unremarkable. See procedure note for details. Patient's workup shows leukocytosis of 14.4 with neutrophilia. Patient had a normal white blood cell count on the of 8.6. Electrolytes within normal limits. Glucose mildly elevated at 134. Lactate normal at 1.8. Liver enzymes and bili within normal limits. Initial troponin less than 0.01. Free T4 within normal limits. Stool occult blood is negative. Monospot negative. Strep swab negative. CRP is elevated at 59. Full respiratory panel is negative. I did speak with Dr. Balbuena given patient meets sepsis criteria for concerning for worsening pneumonia given patient CT imaging on Monday showed what appears to be on my interpretation a right lower lobe pneumonia. Dr. Balbuena recommended a dose of Levaquin and will evaluate the patient. Will give 750 mg of IV Levaquin. Dr. Penn evaluate the patient and agreed with admission. Patient will be admitted for further management of his sepsis and pneumonia. Procedures Limited Ultrasound Indication:: Limited cardiac ultrasound Indication: Chest pain, shortness of breath Identified cardiac views: -Cardiac parasternal long axis -Cardiac parasternal short axis -Cardiac apical four-chamber -Cardiac subxiphoid Findings: -Cardiac activity present -Wall motion grossly normal -Pericardial effusion absent -Right heart strain absent Impression: - From above Images were saved to permanent archive The study was technically adequate CPT: 74600 This study was performed by Alexys king MD, and I personally interpreted all images/videos. Based on my clinical judgement, these images were adequate and did not necessitate further imaging. Limited lung ultrasound A focused ultrasound exam of the pleural spaces was performed to evaluate for pneumothorax, pulmonary edema, pleural effusion and/or consolidation. The ultrasound was performed with the following indications, as noted in the H&P: Dyspnea, chest pain Identified structures: Right and left thoracic cavities were examined. Findings: Lung sliding: - Left present - Right present B-lines: - Left absent - Right absent Pleural effusion: - Left absent - Right absent Consolidation: - Left absent - Right absent Impression: - Pneumothorax absent - Pleural effusion absent - B-lines absent - Consolidation absent Images were saved to permanent archive The study was technically adequate CPT 43908-61 This study was performed by Alexys king MD, and I personally interpreted all images/videos. Based on my clinical judgement, these images were adequate and did not necessitate further imaging. Critical Care Critical Care Time Critical Care Time: No
[2024-11-28 08:35] LABS: Hematocrit 50.0 % (42.0-52.0); Hemoglobin 16.8 g/dL (14.1-18.0); Immature Granulocytes % 0.3 %; Mean Corpuscular HGB Conc 33.6 g/dL (31.8-35.4); Mean Corpuscular Hemoglobin 29.9 pg (27.0-31.2); Mean Corpuscular Volume 89.1 fl (80-94); Nucleated Red Blood Cells % 0 %; Platelet Count 311 K/mm3 (142-424); Red Blood Count 5.61 M/mm3 (4.60-6.20); Red Cell Distribution Width-SD 40.9 fL; White Blood Count 14.4 K/mm3 (4.8-10.8)
[2024-11-28 08:37] LABS: Albumin Level 4.1 g/dl (3.5-5.0); Chloride 102 mmol/L (98-107)
[2024-11-28 08:38] LABS: Potassium 3.8 mmoL/L (3.5-5.1); Sodium 138 mmol/L (136-145)
[2024-11-28 08:40] LABS: Alanine Aminotransferase 24 U/L (12-78); Anion Gap 14.8 mEq/L (5-15); Aspartate Amino Transferase 35 U/L (17-59); Blood Urea Nitrogen 9 mg/dl (9-20); Carbon Dioxide 25 mmol/L (22.0-30.0); Creatinine Clearance Estimated 105 mL/min (50-200); Creatinine,Serum 1.00 mg/dl (0.66-1.25); Estimated Glomerular Filt Rate 77 ml/min (>60); GFR (African American) 93 ML/MIN (>60)
[2024-11-28 08:41] LABS: Albumin/Globulin Ratio 1.1 (1.1-1.8); Alkaline Phosphatase 81 U/L (38-126); Bilirubin,Total 0.9 mg/dl (0.2-1.3); Calcium 8.8 mg/dl (8.4-10.2); Globulin 3.8 g/dL (1.3-3.2); Glucose 134 mg/dl (74-100); Total Protein,Serum 7.9 g/dl (6.3-8.2)
[2024-11-28 08:46] LABS: Adenovirus,PCR Not Detected (NotDetected); Chlamydophila Pneumoniae, PCR Not Detected (NotDetected); Coronavirus 19, PCR Not Detected (NotDetected); Coronovirus HKU1,PCR Not Detected (NotDetected); Influenza A, PCR Not Detected (NotDetected); Influenza AH1, 2009 Not Detected (NotDetected); Influenza AH1, PCR Not Detected (NotDetected); Influenza AH3,PCR Not Detected (NotDetected); Influenza B, PCR Not Detected (NotDetected); Mycoplasma Pneumoniae, PCR Not Detected (NotDetected); Parainfluenza 1, PCR Not Detected (NotDetected); Parainfluenza 2, PCR Not Detected (NotDetected); Parainfluenza 3, PCR Not Detected (NotDetected); Parainfluenza 4, PCR Not Detected (NotDetected)
[2024-11-28] MEDS: LACTATED RINGERS 1000ML 2,470 ML 1235 ML IV (08:46)
[2024-11-28] MEDS: ASPIRIN 325MG TABLET 325 MG PO (08:46)
[2024-11-28 09:08] LABS: NT Pro Brain Natriuretic Pep. 149 pg/mL (0-125)
[2024-11-28 09:10] LABS: Occult Blood,Stool Negative (Negative)
[2024-11-28 09:14] LABS: Free T4 (Free Thyroxine) 1.16 ng/dl (0.78-2.19)
[2024-11-28 09:17] LABS: Troponin I < 0.01 ng/ml (0.00-0.034)
[2024-11-28] MEDS: AZITHROMYCIN 500 MG in 0.9 % SODIUM CHLORIDE 250 ML 250 MG IV (09:23)
[2024-11-28 09:28] LABS: Thyroid Stimulating Hormone 7.34 uIU/mL (0.465-4.68)
[2024-11-28] MEDS: KETOROLAC 15MG/ML VIAL 15 MG IV (09:39)
--- NOTE | 2024-11-28 09:52 | PC.NURSE ---
Dr. Dos Santos speaking with Dr. Balbuena
[2024-11-28 09:54] LABS: Monoscreen (Rapid) Negative (Negative)
[2024-11-28 09:59] LABS: Strep Scrn Group A (Rapid) Negative (Negative)
[2024-11-28 10:09] LABS: C-Reactive Protein 59.5 mg/L (0-4)
[2024-11-28] MEDS: LEVOFLOXACIN/D5W 750 MG/150 ML 750 MG/150 ML PIGGYBACK 100 MG IV (12:12)
[2024-11-28] MEDS: ACETAMINOPHEN 500MG TAB 1000 MG PO (12:13)
[2024-11-28 12:24] LABS: Microscopic, Urine URINE MICROSCOPIC (MICROSCOPIC)
[2024-11-28 12:30] LABS: Troponin I < 0.01 ng/ml (0.00-0.034)
--- NOTE | 2024-11-28 12:31 | PC.NURSE ---
Called A to check on status of Dr. Balbuena coming to see patient. Oncology Nurse stated that Dr. Balbuena had just gotten finished seeing all of his patients and that she would let him know. I advised that the patient's family had just been asking about the status of doctor seeing him.
--- NOTE | 2024-11-28 12:38 | PC.NURSE ---
Dr. Balbuena at bedside.
[2024-11-28 12:52] LABS: Bilirubin,Urine Negative (Negative); Color,Urine YELLOW (Yellow); Glucose,Urine (UA) Negative (Negative); Ketones,Urine Negative (Negative); Leukocyte Esterase,Urine Negative (Negative); PH,Urine 6.0 (5.0-8.5); Protein,Urine Negative (Negative); Specific Gravity, Urine <= 1.005 (1.005-1.030); Urobilinogen,Urine 0.2 EU/dl (0.2)
--- NOTE | 2024-11-28 13:01 | PC.NURSE ---
report given 1300
--- NOTE | 2024-11-28 13:17 | P.PN_ITS ---
Subjective *Date: 11/28/24 *Time: 13:17 Interval history: Patient with a 1 week history of symptoms, was in ER 3 days ago, diagnosed with RLL CAP, was given Zithomax and Augmentin. He has not improved, temp was 102 earlier today. Medical Exam Vital signs and Labs for Last 24 Hours: Vital Signs Temp Pulse Pulse Resp BP BP Pulse Ox 11/28/24 11:00 18 120/77 11/28/24 10:30 16 130/81 11/28/24 10:00 18 128/83 11/28/24 09:30 89 14 129/87 96 11/28/24 09:00 88 15 133/88 95 11/28/24 08:37 98 H 12 126/82 97 11/28/24 08:17 98.9 F 105 H 14 128/89 96 11/28/24 08:09 107 H 128/89 95 O2 Del Method 11/28/24 11:00 11/28/24 10:30 11/28/24 10:00 11/28/24 09:30 Room Air 11/28/24 09:00 Room Air 11/28/24 08:37 Room Air 11/28/24 08:17 Room Air 11/28/24 08:09 Room Air Intake and Output 11/27/24 11/28/24 11/28/24 23:59 07:59 15:59 Intake Total 2820.000 / 2820.000 Balance 2820.000 / 2820.000 Intake: Intake, Total IV Amount 2820.000 / 2820.000 Azithromycin 500 mg In 0.9 % 250 / 250 Sodium Chloride 250 ml @ 250 mls/hr IV ONCE ONE Rx#:[id number] Ceftriaxone Sodium 2 gm In 0.9 100 / 100 % Sodium Chloride 100 ml @ 200 mls/hr IV ONCE ONE Rx#:[id number] Lactated Ringers 1000ML 2,470 2470.000 / 2470.000 ml @ 1235 mls/hr IV .Q2H ONE Rx #:[id number] Other: Weight 200 lb Patient Weight 11/28/24 23:59 Weight 200 lb Laboratory Results - last 24 hr 11/28/24 08:17: WBC 14.4 H D, RBC 5.61, Hgb 16.8, Hct 50.0, MCV 89.1, MCH 29.9, MCHC 33.6, RDW 12.3, Plt Count 311 D, MPV 10.7 H, Neut % (Auto) 87.6 H, Lymph % (Auto) 4.7 L, [place] % (Auto) 5.9, Eos % (Auto) 0.9, Baso % (Auto) 0.6, Neut # (Auto) 12.6 H, Lymph # (Auto) 0.7, [place] # (Auto) 0.9, Eos # (Auto) 0.1, Baso # (Auto) 0.1, Sodium 138, Potassium 3.8, Chloride 102, Carbon Dioxide 25, Anion G ap 14.8, BUN 9, Creatinine 1.00, Estimated Creat Clear 105, Estimated GFR 77, Est GFR ( Amer) 93, Glucose 134 H, Lactate 1.8, Calcium 8.8, Total Bilirubin 0.9, AST 35 D, ALT 24 D, Alkaline Phosphatase 81, Troponin I < 0.01, C-Reactive Protein 59.5 H, NT-Pro-B Natriuret Pep 149 H, Total Protein 7.9, Albumin 4.1, Globulin 3.8 H, Albumin/Globulin Ratio 1.1, TSH 7.34 H, Free T4 1.16, Monoscreen Negative 11/28/24 08:34: Stool Occult Blood Negative 11/28/24 08:36: Chlamy pneumoniae PCR Not detected, Adenovirus (PCR) Not detected, B. pertussis DNA (PCR) Not detected, Coronavirus OC43 (PCR) Not detected, Coronavirus HKU1 (PCR) Not detected, Coronavirus 229E (PCR) Not detected, SARS-CoV-2 (PCR) Not detected, Coronavirus NL63 (PCR) Not detected, Human Metapneumovir PCR Not detected, Influenza A (H1) PCR Not detected, Influ A (H1N1/09) PCR Not detected, Influenza A (H3) PCR Not detected, Influenza Type A (PCR) Not detected, Influenza Type B (PCR) Not detected, M. pneumoniae (PCR) Not detected, Parainfluenza 1 (PCR) Not detected, Parainfluenza 2 (PCR) Not detected, Parainfluenza 3 (PCR) Not detected, Parainfluenza 4 (PCR) Not detected, RSV (PCR) Not detected, Entero/Rhino (PCR) Not detected 11/28/24 09:41: Group A Strep Rapid Negative 11/28/24 11:52: Troponin I < 0.01 I & O for Labs for Last 24 Hours: Intake & Output 11/25/24 11/26/24 11/27/24 11/28/24 23:59 23:59 23:59 23:59 Intake Total 2820.000 / 2820.000 Balance 2820.000 / 2820.000 Weight 200 lb Constitutional: Present no acute distress Respiratory: Present rales (few in right base) and normal respiratory effort Cardiac: Present Reg Rate and Rhythm GI: Present normal bowel sounds; Absent tenderness Extremities: Present normal inspection and full ROM Skin: Present intact; Absent erythema Neuro: Present Grossly Intact and moves all extremities Assessment and Plan *Assessment and plan (1) Sepsis: Status: Acute Category: Medical Code(s): A41.9 - Sepsis, unspecified organism (2) Community acquired pneumonia: Status: Acute Qualifiers: Laterality: left Lung location: lower lobe of lung Qualified Code(s): J18.9 - Pneumonia, unspecified organism Category: Medical Code(s): J18.9 - Pneumonia, unspecified organism (3) Fever: Status: Acute Qualifiers: Fever type: unspecified Qualified Code(s): R50.9 - Fever, unspecified Category: Medical Code(s): R50.9 - Fever, unspecified (4) Diarrhea: Status: Acute Category: Medical Code(s): R19.7 - Diarrhea, unspecified Plan Admit to [facility], see orders, start Levaquin. H&P to follow.
--- NOTE | 2024-11-28 13:32 | HMH.PHAINT1 ---
Pharmacy Intervention Comments: MEDICATION RECONCILIATION COMPLETED ON PATIENT USING EXTERNAL FILL HISTORY FROM PHARMACY. -EDITH AVALOS, [facility]
[2024-11-28 13:35] LABS: Squamous Epithelial Cell,Urine Occasional #/hpf (0-5)
[2024-11-28] MEDS: SODIUM CHLORIDE 3% 15ML NEB 3 ML IH (14:06)
--- NOTE | 2024-11-28 14:33 | EXP.HP ---
History of Present Illness *Admission Date: 11/28/24 *Reason for visit:: pneumonia, fever *History of present illness: Doe Gillespie is a 59y male with a history of A-fib who was seen in the emergency department 3 days ago and diagnosed with pneumonia. He states that starting on Monday of last week, he states that he developed shortness of breath and chest pain with deep breathing. He has had fevers 102 that have continued despite being on antibiotics, azithromycin and Augmentin, since Monday. Reports that he feels like his symptoms are getting worse. He notes that his breath smells abnormally bad and he is belching a lot with a sore throat. He also has pain radiating up into his neck but no difficulty swallowing or changes in his voice. He does feel short of breath with a cough. He also notes that he has had loose stool that he describes as black and tarry . He denies any abdominal pain or vomiting. Patient received Advil this morning for a fever of 102 at home. (above as per ER physician) He was evaluated in the ER and was admitted for CAP failing outpatient treatment. He will be started on Levaquin. [facility] Disclaimer: The information contained in this section may have been updated after the patient was seen, as this information can be updated by other users. Medical History Afib Kidney stones Hypothyroid Hypertension Surgical History History of hernia surgery History of cardiac radiofrequency ablation History of surgery on lower extremity History of knee surgery History of appendectomy History of tonsillectomy Family History (Updated 11/28/24 @ 14:36 by CHRISTOPHER Harris) No significant family history Cancer Hypertension Social History (Updated 11/28/24 @ 13:50 by Addis Beltre RN) Smoking Status: Never smoker alcohol intake: never substance use type: denies use current occupational status: employed Travel in the last 8 weeks?: None household members: spouse housing: house caffeine: No Have you lived/traveled outside [place] in past 30 days?: No Contact w/someone who lives/traveled outside [place] past 30 days?: No Exposure to someone with infectious disease in past 14 days?: No Do you have a fever (greater than 100.4 F or 38 C)?: Yes Have you tested positive for COVID-19?: No Exposed to someone with COVID-19 in past 14 days?: No Do you have a sore throat?: No Do you have a cough?: No Do you have any weakness?: No Are you experiencing any nausea/vomitting?: No Do you have any diarrhea?: No Are you experiencing any unusual bleeding?: No Do you have any muscle aches/pain?: No Do you have any abdominal pain?: No Are you experiencing loss of taste or smell?: No Other Medical History Have you received the Flu Vaccine for this season: Yes Have you received the Pneumonia Vaccine: No Review of Systems Constitutional Constitutional: Reports chills, Reports fatigue, Reports fever(s), Reports headache(s), Reports poor appetite, Reports malaise and Reports weakness Eyes Eyes: Denies blurry vision and Denies diplopia ENT Ears, Nose, Mouth, and Throat: Reports headache(s), Denies nasal congestion and Denies sore throat *Cardiovascular Cardiovascular: Reports chest pain, Denies dyspnea and Denies leg edema *Respiratory Respiratory: Denies cough and Denies dyspnea *Gastrointestinal Gastrointestinal: Denies abdominal pain, Reports loose stools, Reports melena, Denies nausea and Denies vomiting *Genitourinary Genitourinary: Denies difficulty urinating and Denies dysuria *Musculoskeletal Musculoskeletal: Denies arthralgias and Reports myalgias *Neurologic Neurologic: Reports headache(s) and Reports weakness Endocrine Endocrine: Reports fatigue Meds Home Medications and Allergies Home Medications ?Medication ?Instructions ?Recorded ?Confirmed ?Type levothyroxine 125 mcg tablet 150 mcg PO DAILY 12/07/20 11/28/24 History (Synthroid) losartan 100 mg tablet (Cozaar) 100 mg PO DAILY 12/26/22 11/28/24 History magnesium oxide 400 mg (241.3 mg 400 mg PO DAILY 12/26/22 11/28/24 History magnesium) tablet (MagOx) aspirin 81 mg capsule 81 mg PO DAILY 08/22/23 11/28/24 History amoxicillin 875 mg-potassium 1 tab PO BID #20 tabs 11/25/24 11/28/24 Rx clavulanate 125 mg tablet azithromycin 500 mg tablet 500 mg PO DIRECTED 11/28/24 11/28/24 History tamsulosin 0.4 mg capsule 0.4 mg PO DAILY 11/28/24 11/28/24 History New Prescriptions to Start Prescriptions: Allergies Allergy/AdvReac Type Severity Reaction Status Date / Time No Known Allergies Allergy Verified 08/22/23 07:48 Exam Data for Last 24 hours Vital signs and Labs for Last 24 Hours: Temp Pulse Resp BP Pulse Ox O2 Del Method 98.9 F 70 16 128/87 97 Room Air 11/28/24 13:35 11/28/24 14:11 11/28/24 14:11 11/28/24 13:35 11/28/24 14:11 11/28/24 14:11 Laboratory Results - last 24 hr 11/28/24 08:17: WBC 14.4 H D, RBC 5.61, Hgb 16.8, Hct 50.0, MCV 89.1, MCH 29.9, MCHC 33.6, RDW 12.3, Plt Count 311 D, MPV 10.7 H, Neut % (Auto) 87.6 H, Lymph % (Auto) 4.7 L, [place] % (Auto) 5.9, Eos % (Auto) 0.9, Baso % (Auto) 0.6, Neut # (Auto) 12.6 H, Lymph # (Auto) 0.7, [place] # (Auto) 0.9, Eos # (Auto) 0.1, Baso # (Auto) 0.1, Sodium 138, Potassium 3.8, Chloride 102, Carbon Dioxide 25, Anion Gap 14.8, BUN 9, Creatinine 1.00, Estimated Creat Clear 105, Estimated GFR 77, Est GFR ( Amer) 93, Glucose 134 H, Lactate 1.8, Calcium 8.8, Total Bilirubin 0.9, AST 35 D, ALT 24 D, Alkaline Phosphatase 81, Troponin I < 0.01, C-Reactive Protein 59.5 H, NT-Pro-B Natriuret Pep 149 H, Total Protein 7.9, Albumin 4.1, Globulin 3.8 H, Albumin/Globulin Ratio 1.1, TSH 7.34 H, Free T4 1.16, Monoscreen Negative 11/28/24 08:34: Stool Occult Blood Negative 11/28/24 08:36: Chlamy pneumoniae PCR Not detected, Adenovirus (PCR) Not detected, B. pertussis DNA (PCR) Not detected, Coronavirus OC43 (PCR) Not detected, Coronavirus HKU1 (PCR) Not detected, Coronavirus 229E (PCR) Not detected, SARS-CoV-2 (PCR) Not detected, Coronavirus NL63 (PCR) Not detected, Human Metapneumovir PCR Not detected, Influenza A (H1) PCR Not detected, Influ A (H1N1/09) PCR Not detected, Influenza A (H3) PCR Not detected, Influenza Type A (PCR) Not detected, Influenza Type B (PCR) Not detected, M. pneumoniae (PCR) Not detected, Parainfluenza 1 (PCR) Not detected, Parainfluenza 2 (PCR) Not detected, Parainfluenza 3 (PCR) Not detected, Parainfluenza 4 (PCR) Not detected, RSV (PCR) Not detected, Entero/Rhino (PCR) Not detected 11/28/24 09:41: Group A Strep Rapid Negative 11/28/24 11:52: Troponin I < 0.01 11/28/24 12:03: Urine Color Yellow, Urine Appearance Clear, Urine pH 6.0, Ur Specific [place] <= 1.005, Urine Protein Negative, Urine Glucose (UA) Negative, Urine Ketones Negative, Urine Blood Trace-i, Urine Nitrate Negative, Urine Bilirubin Negative, Urine Urobilinogen 0.2, Ur Leukocyte Esterase Negative, Urine RBC 3-5, Urine WBC None, Ur Squamous Epith Cells Occasional, Urine Bacteria None I & O for Last 24 hours: Intake & Output 11/26/24 11/27/24 11/28/24 11/29/24 11:59 11:59 11:59 11:59 Intake Total 2820.000 / 2820.000 150 / 150 Balance 2820.000 / 2820.000 150 / 150 Weight 200 lb 202 lb 6 oz Constitutional Constitutional: no acute distress *Routine HEENT Exam Head: Present normocephalic and atraumatic Eye: Present EOMI and PERRL ENT: Present mucous membranes moist *Routine Neck Exam Neck: Present supple and full ROM *Routine Respiratory Exam Respiratory: Present rales (faint basilar rales) *Routine Cardiovascular Exam Cardiovascular: Present RRR *Routine Abdominal Exam Abdominal: Present soft and normoactive bowel sounds; Absent tenderness *Routine Rectal Exam Rectal:: deferred *Routine Genitalia Exam Genitalia:: deferred *Routine Extremities Exam Extremities: Absent cyanosis, clubbing or edema *Routine Skin Exam Skin: Present intact; Absent erythema *Routine Neurological Exam Neurological: Present alert and oriented X3 H&P: Result Impressions CXR - nothing acute Assessment and Plan *Assessment and plan (1) Sepsis: Status: Acute Category: Medical Code(s): A41.9 - Sepsis, unspecified organism (2) Community acquired pneumonia: Status: Acute Qualifiers: Laterality: left Lung location: lower lobe of lung Qualified Code(s): J18.9 - Pneumonia, unspecified organism Category: Medical Code(s): J18.9 - Pneumonia, unspecified organism (3) Fever: Status: Acute Qualifiers: Fever type: unspecified Qualified Code(s): R50.9 - Fever, unspecified Category: Medical Code(s): R50.9 - Fever, unspecified (4) Diarrhea: Status: Acute Category: Medical Code(s): R19.7 - Diarrhea, unspecified Plan Admit to [facility], see orders, start Levaquin. Will get a stool panel.
[2024-11-28 15:42] LABS: Troponin I < 0.01 ng/ml (0.00-0.034)
[2024-11-28 16:41] LABS: Adenovirus F 40/41, stool Not Detected (NotDetected); Clostridium Difficile A/B, PCR Not Detected (NotDetected); Cyclospora Cayetanesis Not Detected (NotDetected); Plesimonas Shigalloides, PCR Not Detected (NotDetected); Salmonella, PCR Not Detected (NotDetected); Shiga-like toxin E coli Not Detected (NotDetected); Shigella Enterovasive E coli Not Detected (NotDetected); Vibrio, PCR Not Detected (NotDetected); Yersinia Entercolitica, PCR Not Detected (NotDetected)
[2024-11-28] MEDS: PANTOPRAZOLE 40MG TABLET 40 MG PO (20:01)
[2024-11-29 04:00] VITALS: BP 154/86; PULSE 63; RESP 14; TEMP 36.6; O2SAT 99; BMI 25.3
[2024-11-29 06:10] LABS: Hematocrit 46.5 % (42.0-52.0); Hemoglobin 15.2 g/dL (14.1-18.0); Immature Granulocytes % 0.3 %; Mean Corpuscular HGB Conc 32.7 g/dL (31.8-35.4); Mean Corpuscular Hemoglobin 29.4 pg (27.0-31.2); Mean Corpuscular Volume 89.9 fl (80-94); Nucleated Red Blood Cells % 0 %; Platelet Count 271 K/mm3 (142-424); Red Blood Count 5.17 M/mm3 (4.60-6.20); Red Cell Distribution Width-SD 41.0 fL; White Blood Count 6.1 K/mm3 (4.8-10.8)
[2024-11-29 06:20] LABS: Chloride 105 mmol/L (98-107); Potassium 3.9 mmoL/L (3.5-5.1); Sodium 136 mmol/L (136-145)
[2024-11-29 06:23] LABS: Anion Gap 9.9 mEq/L (5-15); Blood Urea Nitrogen 8 mg/dl (9-20); Carbon Dioxide 25 mmol/L (22.0-30.0); Creatinine Clearance Estimated 115 mL/min (50-200); Creatinine,Serum 0.90 mg/dl (0.66-1.25); Estimated Glomerular Filt Rate 87 ml/min (>60); GFR (African American) 105 ML/MIN (>60)
[2024-11-29 06:24] LABS: Calcium 8.5 mg/dl (8.4-10.2); Glucose 96 mg/dl (74-100)
[2024-11-29] MEDS: LEVOTHYROXINE 150MCG (0.15MG)TAB 150 MCG PO (06:40)
[2024-11-29 07:49] VITALS: BP 133/79; PULSE 69; RESP 20; TEMP 36.7; O2SAT 99
--- NOTE | 2024-11-29 08:11 | EXP.ACUTE.PN ---
Subjective *Date: 11/29/24 *Time: 09:02 Interval history: Patient is feeling better this am. Headache has resolved as has his fever. He denies any pain. He denies cough and SOA. He continues with diarrhea. Medical Exam Vital signs and Labs for Last 24 Hours: Vital Signs Temp Pulse Pulse Resp BP BP Pulse Ox 11/29/24 07:49 98.1 F 69 20 133/79 99 11/29/24 06:14 11/29/24 05:00 11/29/24 04:00 98 F 63 14 154/86 H 99 11/29/24 03:00 11/29/24 01:00 11/28/24 23:37 98.3 F 74 16 138/85 99 11/28/24 23:00 11/28/24 21:00 11/28/24 20:00 11/28/24 19:55 98.1 F 72 16 124/77 98 11/28/24 18:50 11/28/24 17:00 11/28/24 16:00 98.1 F 66 16 124/74 99 11/28/24 15:00 11/28/24 14:11 70 16 11/28/24 14:11 70 11/28/24 14:11 73 11/28/24 14:11 97 11/28/24 13:35 98.9 F 87 16 128/87 11/28/24 13:33 98.4 F 76 17 121/66 97 11/28/24 13:00 11/28/24 12:55 11/28/24 11:00 18 120/77 11/28/24 10:30 16 130/81 11/28/24 10:00 18 128/83 11/28/24 09:30 89 14 129/87 96 11/28/24 09:20 99.5 F 11/28/24 09:00 88 15 133/88 95 11/28/24 08:37 98 H 12 126/82 97 11/28/24 08:17 98.9 F 105 H 14 128/89 96 O2 Del Method 11/29/24 07:49 Room Air 11/29/24 06:14 Room Air 11/29/24 05:00 Room Air 11/29/24 04:00 Room Air 11/29/24 03:00 Room Air 11/29/24 01:00 Room Air 11/28/24 23:37 Room Air 11/28/24 23:00 Room Air 11/28/24 21:00 Room Air 11/28/24 20:00 Room Air 11/28/24 19:55 Room Air 11/28/24 18:50 Room Air 11/28/24 17:00 Room Air 11/28/24 16:00 Room Air 11/28/24 15:00 Room Air 11/28/24 14:11 11/28/24 14:11 11/28/24 14:11 11/28/24 14:11 Room Air 11/28/24 13:35 Room Air 11/28/24 13:33 Room Air 11/28/24 13:00 Room Air 11/28/24 12:55 Room Air 11/28/24 11:00 11/28/24 10:30 11/28/24 10:00 11/28/24 09:30 Room Air 11/28/24 09:20 11/28/24 09:00 Room Air 11/28/24 08:37 Room Air 11/28/24 08:17 Room Air Intake and Output 11/28/24 11/29/24 11/29/24 19:59 03:59 11:59 Intake Total 510 / 870 360 / 870 Output Total 0 / 0 0 / 0 0 / 0 Balance 510 / 870 360 / 870 0 / 870 Intake: Intake, Oral Amount 360 / 720 360 / 720 Intake, Total IV Amount 150 / 150 Levofloxacin/D5w 750 mg/150 ml 150 / 150 750 mg In 150 ml @ 100 mls/hr IV ONCE ONE Rx#:[id number] Output: Output, Urine Amount 0 / 0 0 / 0 0 / 0 Other: Number of Unmeasured Voids 1 1 1 Weight 202 lb 6 oz 197 lb 11.2 oz Patient Weight 11/29/24 11:59 Weight 197 lb 11.2 oz Laboratory Results - last 24 hr 11/28/24 08:17: WBC 14.4 H D, RBC 5.61, Hgb 16.8, Hct 50.0, MCV 89.1, MCH 29.9, MCHC 33.6, RDW 12.3, Plt Count 311 D, MPV 10.7 H, Neut % (Auto) 87.6 H, Lymph % (Auto) 4.7 L, [place] % (Auto) 5.9, Eos % (Auto) 0.9, Baso % (Auto) 0.6, Neut # (Auto) 12.6 H, Lymph # (Auto) 0.7, [place] # (Auto) 0.9, Eos # (Auto) 0.1, Baso # (Auto) 0.1, Sodium 138, Potassium 3.8, Chloride 102, Carbon Dioxide 25, Anion Gap 14.8, BUN 9, Creatinine 1.00, Estimated Creat Clear 105, Estimated GFR 77, Est GFR ( Amer) 93, Glucose 134 H, Lactate 1.8, Calcium 8.8, Total Bilirubin 0.9, AST 35 D, ALT 24 D, Alkaline Phosphatase 81, Troponin I < 0.01, C-Reactive Protein 59.5 H, NT-Pro-B Natriuret Pep 149 H, Total Protein 7.9, Albumin 4.1, Globulin 3.8 H, Albumin/Globulin Ratio 1.1, TSH 7.34 H, Free T4 1.16, Monoscreen Negative 11/28/24 08:34: Stool Occult Blood Negative 11/28/24 08:36: Chlamy pneumoniae PCR Not detected, Adenovirus (PCR) Not detected, B. pertussis DNA (PCR) Not detected, Coronavirus OC43 (PCR) Not detected, Coronavirus HKU1 (PCR) Not detected, Coronavirus 229E (PCR) Not detected, SARS-CoV-2 (PCR) Not detected, Coronavirus NL63 (PCR) Not detected, Human Metapneumovir PCR Not detected, Influenza A (H1) PCR Not detected, Influ A (H1N1/09) PCR Not detected, Influenza A (H3) PCR Not detected, Influenza Type A (PCR) Not detected, Influenza Type B (PCR) Not detected, M. pneumoniae (PCR) Not detected, Parainfluenza 1 (PCR) Not detected, Parainfluenza 2 (PCR) Not detected, Parainfluenza 3 (PCR) Not detected, Parainfluenza 4 (PCR) Not detected, RSV (PCR) Not detected, Entero/Rhino (PCR) Not detected 11/28/24 09:41: Group A Strep Rapid Negative 11/28/24 11:52: Troponin I < 0.01 11/28/24 12:03: Urine Color Yellow, Urine Appearance Clear, Urine pH 6.0, Ur Specific [place] <= 1.005, Urine Protein Negative, Urine Glucose (UA) Negative, Urine Ketones Negative, Urine Blood Trace-i, Urine Nitrate Negative, Urine Bilirubin Negative, Urine Urobilinogen 0.2, Ur Leukocyte Esterase Negative, Urine RBC 3-5, Urine WBC None, Ur Squamous Epith Cells Occasional, Urine Bacteria None 11/28/24 14:52: Troponin I < 0.01 11/28/24 16:34: Stl C. cayetanensis PCR Not detected, Stool Rotavirus (PCR) Not detected, Stl Adenov F 40/41 PCR Not detected, Stool Astrovirus (PCR) Not detected, Stool Campylobacter PCR Not detected, Stl C.difficile Tox PCR Not detected, Stool Cryptosporidium PCR Not detected, Stl E.coli Shiga Tox PCR Not detected, Stool E coli O157 PCR Not detected, Stl Enterotoxigenic E PCR Not detected, Stool EPEC (PCR) Not detected, Stool EAEC (PCR) Not detected, Stl E. histolytica PCR Not detected, Stool Giardia Lamblia PCR Not detected, Stool Salmonella PCR Not detected, Stool Sapovirus (PCR) Not detected, Stl P. shigelloides PCR Not detected, Stl Shigella/EIEC PCR Not detected, St Y.enterocolitica PCR Not detected, Stool Vibrio (PCR) Not detected, Stl Vibrio cholerae PCR Not detected, Stl Norovirus GI/GII PCR Not detected 11/29/24 05:53: WBC 6.1 D, RBC 5.17, Hgb 15.2, Hct 46.5, MCV 89.9, MCH 29.4, MCHC 32.7, RDW 12.3, Plt Count 271, MPV 10.6 H, Neut % (Auto) 53.0, Lymph % (Auto) 26.0, [place] % (Auto) 12.2 H, Eos % (Auto) 7.2, Baso % (Auto) 1.3, Neut # (Auto) 3.2, Lymph # (Auto) 1.6, [place] # (Auto) 0.7, Eos # (Auto) 0.4, Baso # (Auto) 0.1, Sodium 136, Potassium 3.9, Chloride 105, Carbon Dioxide 25, Anion Gap 9.9, BUN 8 L, Creatinine 0.90, Estimated Creat Clear 115, Estimated GFR 87, Est GFR ( Amer) 105, Glucose 96 D, Calcium 8.5 I & O for Labs for Last 24 Hours: Intake & Output 11/26/24 11/27/24 11/28/24 11/29/24 11:59 11:59 11:59 11:59 Intake Total 2820.000 / 2820.000 870 / 870 Output Total 0 / 0 Balance 2820.000 / 2820.000 870 / 870 Weight 200 lb 197 lb 11.2 oz Constitutional: Present no acute distress Respiratory: Present rales (few in right base) and normal respiratory effort Cardiac: Present Reg Rate and Rhythm GI: Present normal bowel sounds; Absent tenderness Extremities: Present normal inspection and full ROM Skin: Present intact; Absent erythema Neuro: Present Grossly Intact and moves all extremities Assessment and Plan *Assessment and plan (1) Sepsis: Status: Acute Category: Medical Code(s): A41.9 - Sepsis, unspecified organism (2) Community acquired pneumonia: Status: Acute Qualifiers: Laterality: left Lung location: lower lobe of lung Qualified Code(s): J18.9 - Pneumonia, unspecified organism Category: Medical Code(s): J18.9 - Pneumonia, unspecified organism (3) Fever: Status: Acute Qualifiers: Fever type: unspecified Qualified Code(s): R50.9 - Fever, unspecified Category: Medical Code(s): R50.9 - Fever, unspecified (4) Diarrhea: Status: Acute Category: Medical Code(s): R19.7 - Diarrhea, unspecified Plan Stool panel was negative. Patient is improving. WBC is normal. Possible discharge home on Levaquin. Dr. Balbuena entry - Saw patient, agree with above note. Probable discharge later today.
[2024-11-29] MEDS: ASPIRIN EC 81MG TABLET 81 MG PO (08:52)
[2024-11-29] MEDS: LEVOFLOXACIN/D5W 750 MG/150 ML 750 MG/150 ML PIGGYBACK 100 MG IV (09:59)
[2024-11-29 12:00] VITALS: BP 123/81; PULSE 69; RESP 18; TEMP 36.6; O2SAT 96
--- NOTE | 2024-12-02 09:31 | EXP.DC.SUM ---
General Admission date:: 11/28/24 Discharge date: 11/29/24 HPI HPI HPI: Doe Gillespie is a 59y male with a history of A-fib who was seen in the emergency department 3 days ago and diagnosed with pneumonia. He states that starting on Monday of last week, he states that he developed shortness of breath and chest pain with deep breathing. He has had fevers 102 that have continued despite being on antibiotics, azithromycin and Augmentin, since Monday. Reports that he feels like his symptoms are getting worse. He notes that his breath smells abnormally bad and he is belching a lot with a sore throat. He also has pain radiating up into his neck but no difficulty swallowing or changes in his voice. He does feel short of breath with a cough. He also notes that he has had loose stool that he describes as black and tarry . He denies any abdominal pain or vomiting. Patient received Advil this morning for a fever of 102 at home. (above as per ER physician) He was evaluated in the ER and was admitted for CAP failing outpatient treatment. He will be started on Levaquin. Hospital Course Hospital Course Hospital Course: On admission patient was started on Levaquin having felt outpatient treatment on Zithromax and Augmentin. The following day he felt better. Headache was resolved. He denied any pain, cough, or shortness of breath. He did continue with some diarrhea. Diarrhea panel was negative. He did do well throughout the day and was stable to be discharged home in the p.m. of 11/29/2024. He was to continue with Levaquin p.o. for 1 week with follow-up in the office of [facility] in 1 week. Exam Data for Last 24 hours Vital signs and Labs for Last 24 Hours: Temp Pulse Resp BP Pulse Ox O2 Del Method 97.9 F 69 18 123/81 96 Room Air 11/29/24 12:00 11/29/24 12:00 11/29/24 12:00 11/29/24 12:00 11/29/24 12:00 11/29/24 13:05 I & O for Last 24 hours: Intake & Output 11/29/24 11/30/24 12/01/24 12/02/24 11:59 11:59 11:59 11:59 Intake Total 1380 / 1380 520 / 520 Output Total 0 / 0 0 / 0 Balance 1380 / 1380 520 / 520 Weight 197 lb 11.2 oz Microbiology Reports for the Last 24 Hours: Microbiology 11/28/24 08:47 Blood Blood Culture - Preliminary NO GROWTH AFTER 4 DAYS 11/28/24 08:17 Blood Blood Culture - Preliminary NO GROWTH AFTER 4 DAYS Narrative: [facility] PE 11/29/2024 Constitutional: Present no acute distress Respiratory: Present rales (few in right base) and normal respiratory effort Cardiac: Present Reg Rate and Rhythm GI: Present normal bowel sounds; Absent tenderness Extremities: Present normal inspection and full ROM Skin: Present intact; Absent erythema Neuro: Present Grossly Intact and moves all extremities Results Data Completed and Pending Completed studies during hospitalization [Text1]: 11/25/2024 Chest CTA FINDINGS: There is no evidence for pulmonary embolism. The thoracic aorta is patent without evidence of dissection. There is no axillary adenopathy. There is no mediastinal or hilar adenopathy. The heart size is normal. There is no pleural or pericardial effusion. There is mild atelectasis. Lung window images demonstrate no suspicious pulmonary nodule or infiltrate. Limited images of the upper abdomen are unremarkable. IMPRESSION: No evidence of pulmonary embolism or aortic dissection. Mild atelectasis. 11/28/2024 CXR FINDINGS: No acute pulmonary density is evident. There is no evidence of effusion or other pleural disease. The mediastinum has a normal appearance. The cardiac silhouette is unremarkable. IMPRESSION: Unremarkable chest exam. 11/28/24 08:17: WBC 14.4 H D, RBC 5.61, Hgb 16.8, Hct 50.0, MCV 89.1, MCH 29.9, MCHC 33.6, RDW 12.3, Plt Count 311 D, MPV 10.7 H, Neut % (Auto) 87.6 H, Lymph % (Auto) 4.7 L, [place] % (Auto) 5.9, Eos % (Auto) 0.9, Baso % (Auto) 0.6, Neut # (Auto) 12.6 H, Lymph # (Auto) 0.7, [place] # (Auto) 0.9, Eos # (Auto) 0.1, Baso # (Auto) 0.1, Sodium 138, Potassium 3.8, Chloride 102, Carbon Dioxide 25, Anion Gap 14.8, BUN 9, Creatinine 1.00, Estimated Creat Clear 105, Estimated GFR 77, Est GFR ( Amer) 93, Glucose 134 H, Lactate 1.8, Calcium 8.8, Total Bilirubin 0.9, AST 35 D, ALT 24 D, Alkaline Phosphatase 81, Troponin I < 0.01, C-Reactive Protein 59.5 H, NT-Pro-B Natriuret Pep 149 H, Total Protein 7.9, Albumin 4.1, Globulin 3.8 H, Albumin/Globulin Ratio 1.1, TSH 7.34 H, Free T4 1.16, Monoscreen Negative 11/28/24 08:34: Stool Occult Blood Negative 11/28/24 08:36: Chlamy pneumoniae PCR Not detected, Adenovirus (PCR) Not detected, B. pertussis DNA (PCR) Not detected, Coronavirus OC43 (PCR) Not detected, Coronavirus HKU1 (PCR) Not detected, Coronavirus 229E (PCR) Not detected, SARS-CoV-2 (PCR) Not detected, Coronavirus NL63 (PCR) Not detected, Human Metapneumovir PCR Not detected, Influenza A (H1) PCR Not detected, Influ A (H1N1/09) PCR Not detected, Influenza A (H3) PCR Not detected, Influenza Type A (PCR) Not detected, Influenza Type B (PCR) Not detected, M. pneumoniae (PCR) Not detected, Parainfluenza 1 (PCR) Not detected, Parainfluenza 2 (PCR) Not detected, Parainfluenza 3 (PCR) Not detected, Parainfluenza 4 (PCR) Not detected, RSV (PCR) Not detected, Entero/Rhino (PCR) Not detected 11/28/24 09:41: Group A Strep Rapid Negative 11/28/24 11:52: Troponin I < 0.01 11/29/24 05:53: WBC 6.1 D, RBC 5.17, Hgb 15.2, Hct 46.5, MCV 89.9, MCH 29.4, MCHC 32.7, RDW 12.3, Plt Count 271, MPV 10.6 H, Neut % (Auto) 53.0, Lymph % (Auto) 26.0, [place] % (Auto) 12.2 H, Eos % (Auto) 7.2, Baso % (Auto) 1.3, Neut # (Auto) 3.2, Lymph # (Auto) 1.6, [place] # (Auto) 0.7, Eos # (Auto) 0.4, Baso # (Auto) 0.1, Sodium 136, Potassium 3.9, Chloride 105, Carbon Dioxide 25, Anion Gap 9.9, BUN 8 L, Creatinine 0.90, Estimated Creat Clear 115, Estimated GFR 87, Est GFR ( Amer) 105, Glucose 96 D, Calcium 8.5 Labs on day of discharge: Preliminary micro results at discharge 11/28/24 08:47 Blood Culture - Preliminary Blood NO GROWTH AFTER 4 DAYS 11/28/24 08:17 Blood Culture - Preliminary Blood NO GROWTH AFTER 4 DAYS DS: Diagnosis Discharge Diagnosis (1) Sepsis: Status: Acute Code(s): A41.9 - Sepsis, unspecified organism (2) Community acquired pneumonia: Status: Acute Code(s): J18.9 - Pneumonia, unspecified organism Qualifiers: Laterality: left Lung location: lower lobe of lung Qualified Code(s): J18.9 - Pneumonia, unspecified organism (3) Fever: Status: Acute Code(s): R50.9 - Fever, unspecified Qualifiers: Fever type: unspecified Qualified Code(s): R50.9 - Fever, unspecified (4) Diarrhea: Status: Acute Code(s): R19.7 - Diarrhea, unspecified Meds Home Medications and Allergies Home Medications ?Medication ?Instructions ?Recorded ?Confirmed ?Type levothyroxine 125 mcg tablet 150 mcg PO DAILY 12/07/20 11/28/24 History (Synthroid) losartan 100 mg tablet (Cozaar) 100 mg PO DAILY 12/26/22 11/28/24 History magnesium oxide 400 mg (241.3 mg 400 mg PO DAILY 12/26/22 11/28/24 History magnesium) tablet (MagOx) aspirin 81 mg capsule 81 mg PO DAILY 08/22/23 11/28/24 History tamsulosin 0.4 mg capsule 0.4 mg PO DAILY 11/28/24 11/28/24 History levofloxacin 500 mg tablet 500 mg PO DAILY #7 tabs 11/29/24 Rx New Prescriptions to Start Prescriptions: levofloxacin [place],Joshua Allergies Allergy/AdvReac Type Severity Reaction Status Date / Time No Known Allergies Allergy Verified 08/22/23 07:48 Discharge Plan Disposition Patient Disposition: Home, Self-Care Condition: Good Follow up Plan Follow up with: Joshua Balbuena MD [Primary Care Provider, Medical] - 12/06/24 9:30 am Prescriptions/Medication Reconciliation: New levofloxacin 500 mg tablet 500 mg PO DAILY Qty: 7 0RF Continued tamsulosin 0.4 mg capsule 0.4 mg PO DAILY Patient Comments: TAKE 1 CAPSULE BY MOUTH ONCE DAILY levothyroxine [Synthroid] 125 mcg tablet 150 mcg PO DAILY magnesium oxide [MagOx] 400 mg (241.3 mg magnesium) tablet 400 mg PO DAILY Patient Comments: TAKE 1 TABLET BY MOUTH ONCE DAILY losartan [Cozaar] 100 mg tablet 100 mg PO DAILY Patient Comments: TAKE 1 TABLET BY MOUTH ONCE DAILY aspirin 81 mg Capsule 81 mg PO DAILY Discontinued azithromycin 500 mg tablet 500 mg PO DIRECTED amoxicillin-pot clavulanate 875-125 mg tablet 1 tab PO BID Qty: 20 0RF Problem Reconciliation Problems Reviewed?: Yes Patient Discharge Instructions ACTIVITY: Limited activity DIET: continue same diet Patient Instructions: Sepsis, DI for Pneumonia in Adults, DI for Sepsis in Adults, Stop Light Pneumonia, Stop Light Infection Print Language: Pashto Providers Primary Care Provider: Joshua Balbuena Admit Provider: Joshua Balbuena Attending Provider: Joshua Balbuena
--- NOTE | 2024-12-02 10:55 | SW/DCPLANNER ---
Spoke with patient on the phone. Patient stated that he is feeling better. Patient stated that he is aware of his upcoming appointment. Patient stated that he was able to get his new medicine picked up from clinic pharmacy. Patient stated that he has no concerns or questions at this time. Celsa Nur
== END 2024-11-29 14:18 | disposition home or self-care (01) ==
LOC: ER 12:47 → 2ND 12:55
PROVIDERS: Physician Assistant; Admitting Provider Family Medicine; Emergency Provider Student in an Organized Health Care Education/Training Program; PCP Family Medicine; Visit Provider Family Medicine
DX: A41.9 Sepsis, unspecified organism (principal); J18.9 Pneumonia, unspecified organism; I10 Essential (primary) hypertension; R19.7 Diarrhea, unspecified; E03.9 Hypothyroidism, unspecified; I48.91 Unspecified atrial fibrillation; Z79.890 Hormone replacement therapy; Z79.899 Other long term (current) drug therapy
CPT/HCPCS: 0223U; 36415; 71046; 80048; 80053; 81001; 82272; 83605; 83880; 84439; 84443; 84484; 85025; 86140; 86318; 87040; 87430; 87507; 89220; 93005; 94640; 96365; 96366; 96367; 96372; 96375; 99285; G0328; G0378; J0456; J0696; J1650; J1885; J1956; J7050; J7120